=== PATIENT | female | born 1955 | race Hispanic/Latino ===

== ENCOUNTER 2018-03-10 11:34 | Inpatient (IN) | payer BC ==
--- NOTE | 2018-03-10 11:42 | ED PDOC ---
Arrival/HPI - General Chief Complaint: Dizziness/Lightheaded Time Seen by Provider: 03/10/18 11:40 Historian: Patient - History of Present Illness Narrative History of Present Illness (Text): 03/10/18 12:06 62 year old female was brought to the Emergency department by EMS complaining of severe dizziness/lightheadedness, severe nausea with episodes of vomiting, chest tightness and burning associated with difficulty breathing while at rest since 20 minutes prior to arrival. Patient informs losing consciousness prior to contacting EMS and regained consciousness soon after with no improvement to symptoms. Upon EMS arrival, patient appeared diaphoretic with the above mentioned symptoms. Patient was brought to the Emergency department immediately for medical evaluation. Patient denies any medical problems and informs smoking a pack of cigarettes a day. 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) Symptom Onset: Gradual Symptom Course: Worsening Quality: Aching, Tightness, Burning Activities at Onset: Light Context: Home Past Medical History - Provider Review Nursing Documentation Reviewed: Yes - Travel History Have you recently traveled outside [place] w/in the past 3 mons?: No - Past History Past History: No Previous - Infectious Disease Hx of Infectious Diseases: None - Tetanus Immunization Tetanus Immunization: Unknown - Reproductive Menopause: Yes Currently : No - Past Medical History Past Medical History: No Previous Family/Social History - Physician Review Nursing Documentation Reviewed: Yes Family/Social History: No Known Family HX Smoking Status: Current Some Days Smoker Hx Alcohol Use: No Hx Substance Use: No Allergies/Home Meds Allergies/Adverse Reactions: Allergies No Known Allergies Allergy (Verified 03/10/18 11:42) Review of Systems - Physician Review All systems were reviewed & negative as marked: Yes - Review of Systems Constitutional: Fatigue. absent: Fevers Eyes: Normal ENT: Normal Respiratory: SOB Cardiovascular: Chest Pain (chest tightness and burning), Syncope Gastrointestinal: Nausea, Vomiting Genitourinary Female: Normal Musculoskeletal: Normal Skin: Normal Neurological: Dizziness Endocrine: Diaphoresis Hemo/Lymphatic: Normal Psychiatric: Normal Physical Exam Vital Signs Reviewed: Yes Vital Signs Temp Pulse Resp BP Pulse Ox 03/10/18 11:34 96 F L 46 L 18 79/45 L 93 L Temperature: Afebrile Blood Pressure: Hypotensive Pulse: Bradycardic Respiratory Rate: Other (difficulty breathing) Appearance: Positive for: Uncomfortable, Other (mild distress due to pain, uncomfortable, + diaphoretic; alert/awake, resting in bed, coopertive, follows command with ease) Pain Distress: Mild (due to pain) Mental Status: Positive for: Alert and Oriented X 3, other (orientedX3, responds to command) - Systems Exam Head: Present: Atraumatic, Normocephalic Pupils: Present: PERRL, Other (no nystagmus, no photophobia, sclera anicteric) Extroacular Muscles: Present: EOMI Conjunctiva: Present: Normal Ears: Present: Normal Mouth: Present: Moist Mucous Membranes, Normal Teeth Pharnyx: Present: Normal Nose (External): Present: Atraumatic Nose (Internal): Present: Normal Inspection Neck: Present: Normal Range of Motion, Trachea Midline. No: Meningeal Signs, MIDLINE TENDERNESS, Paraspinal Tenderness Respiratory/Chest: Present: Good Air Exchange, Other (coarse bilateral lung sloan, no w/r/r noted, no tachypenia noted, no accessory muscle use noted). No : Respiratory Distress, Accessory Muscle Use, Wheezes, Rales, Rhonchi Cardiovascular: Present: Normal S1, S2, Bradycardic. No: Murmurs Abdomen: Present: Normal Bowel Sounds, Other (well nourished female, no focal tenderness, no masses/rebound/guarding/rigidity; no hammonds's sign, no mcburney' s point tenderness). No: Tenderness, Distention, Peritoneal Signs Back: Present: Normal Inspection. No: CVA Tenderness, Midline Tenderness, Paraspinal Tenderness Upper Extremity: Present: Normal Inspection, Normal ROM, NORMAL PULSES, Neurovascularly Intact. No: Cyanosis, Edema, Capillary Refill < 2s (~1 second) Lower Extremity: Present: Normal Inspection, NORMAL PULSES, Normal ROM, Neurovascularly Intact. No: Edema, Capillary Refill < 2 s Neurological: Present: GCS=15, CN II-XII Intact, Speech Normal Skin: Present: Diaphoretic, Cold, Other (slightly pale, cap refill ~ 1-2 sec). No: Rashes Psychiatric: Present: Alert, Oriented x 3, Normal Insight, Normal Concentration Medical Decision Making ED Course and Treatment: 03/10/18 11:42 Impression: 62 year old female presents to the Emergency department for possible STEMI. I have considered all differential diagnoses regarding patients chief medical complaints/clinical findings which include but are not limited to: STEMI Plan: STEMI -- EKG -- Labs -- Chest X-ray -- Aspirin -- Heparin -- Brilinta -- IV Fluids -- Reassess and disposition Progress Notes: 03/10/18 11:38 CODE HEART ACTIVATED. 03/10/18 11:[address] Aguiar, who is aware and agrees with Emergency department plan management. Requests to administer patient Brilinta, full dose aspirin and heparin. Will evaluate patient. 03/10/18 11:[address] Trevino, as Dr. Aguiar is far away (~40min away), and he is aware and agrees with Emergency department management plan. Will meet patient in catherization lab. pt is made aware of her medical results agrees with cath/admission 03/10/18 11:54 Initially, patient was believed to not have insurance and is why the hospitalist was contacted. However, patient does have insurance. Dr. Casas will be contacted. 03/10/18 12:[address] Casas, who is aware and agrees with admission of patient. requesting his resident and an intensivists to be consulted; Laundry Operator Wash Room has been paged. 03/10/18 12:44 Laundry Operator Wash Room has been paged before and has yet to reply. 03/10/18 13:46 Discussed case with , who is aware and agrees with admission. 03/10/18 13:[address] Casas's resident, who is aware and agrees with Emergency department plan. Will continue to monitor and evaluate patient. Re-evaluation Time: 11:40 Reassessment Condition: Unchanged - Critical Care Critical Care Minutes: 45 minutes Critical Care Time: Excluding Proc Time Narrative Critical Care (Text): 03/11/18 00:15 critical care time: 45min, excluding procedure time, excluding time teaching residents/students/mid-level providers; including initial eval/diagnosis, diagnostic interpretation, re-eval, consultations, final disposition - Lab Interpretations Lab Results: 03/10/18 11:49 03/10/18 11:49 Lab Results 03/10/18 11:49: Sodium 143, Potassium 4.4, Chloride 107, Carbon Dioxide 23, Anion Gap 18, BUN 19, Creatinine 0.7, Est GFR ( Amer) > 60, Est GFR (Non- Af Amer) > 60, Random Glucose 179 H, Calcium 9.8, Total Bilirubin 0.5, AST 65 H , ALT 71 H, Alkaline Phosphatase 94, Lactate Dehydrogenase 620, Total Creatine Kinase 45, Troponin I 0.21 H*, Total Protein 6.6, Albumin 4.0, Globulin 2.5, Albumin/Globulin Ratio 1.6 03/10/18 11:49: PT 10.4, INR 0.91 L 03/10/18 11:49: WBC 12.5 H, RBC 5.27, Hgb 18.4 H*, Hct 51.5 H, MCV 97.7, MCH 34.9, MCHC 35.7, RDW 13.5, Plt Count 302, MPV 10.5, Gran % 60.7, Lymph % (Auto) 33.2, Casey % (Auto) 4.9, Eos % (Auto) 0.8 L, Baso % (Auto) 0.4, Gran # 7.58 H, Lymph # (Auto) 4.1 H, Casey # (Auto) 0.6, Eos # (Auto) 0.1, Baso # (Auto) 0.05 I have reviewed the lab results: Yes Interpretation: Abnormal lab values (elevated trop/elevated LFTs) - RAD Interpretation Narrative RAD Interpretations (Text): 03/10/18 12:16 Chest X-ray reviewed by radiologist, shows: FINDINGS: LUNGS: No active pulmonary disease. PLEURA: No significant pleural effusion identified, no pneumothorax apparent. CARDIOVASCULAR: Normal. OSSEOUS STRUCTURES: No significant abnormalities. VISUALIZED UPPER ABDOMEN: Normal. OTHER FINDINGS: None. IMPRESSION: No active disease. Radiology Orders: 03/10/18 11:43 CHEST PORTABLE [RAD] Stat Resident Caregiver: Radiologist - EKG Interpretation EKG Interpretation (Text): 03/10/18 1200 NSR at 70 bpm, normal axis, no ectopy, ST Elevations noted II/III/F/V3-6, with depressions noted I/L, V1-2; ABNL EKG; ACUTE CT; no old ekg to compare with Interpreted by ED Physician: Yes Type: 12 lead EKG Comparison: No previous EKG avail. - Medication Orders Current Medication Orders: Acetaminophen (Tylenol 325mg Tab) 650 mg PO Q4H PRN PRN Reason: Pain, Mild (1-3) Last Admin: 03/10/18 16:07 Dose: 650 mg Re-Assess: MAR Pain/Vitals Document 03/10/18 17:07 LC (Rec: 03/10/18 17:28 LC [facility] [id number]) Pain Reassessment Is This A Pain ReAssessment? Yes Sleep Is patient sleeping during reassessment? Yes Albuterol/Ipratropium (Duoneb 3 Mg/0.5 Mg (3 Ml) Ud) 3 ml IH Q2H PRN PRN Reason: Shortness of Breath Albuterol/Ipratropium (Duoneb 3 Mg/0.5 Mg (3 Ml) Ud) 3 ml IH [id number] [facility] Last Admin: 03/10/18 19:58 Dose: 3 ml Alprazolam (Xanax) 0.25 mg PO BID PRN PRN Reason: Anxiety Stop: 03/17/18 12:47 Aspirin (Ecotrin) 81 mg PO DAILY [facility] Atorvastatin Calcium (Lipitor) 80 mg PO DIN [facility] Last Admin: 03/10/18 15:59 Dose: 80 mg Docusate Sodium (Colace) 100 mg PO BID [facility] Last Admin: 03/10/18 17:27 Dose: 100 mg Last Bowel Movement Document 03/10/18 17:27 (Rec: 03/10/18 17:27 LC [facility] [place]) Last Bowel Movement Last Bowel Movement 03/09/18 Dopamine HCl/Dextrose (Dopamine 400mg/250ml D5w) 400 mg in 250 mls @ 16.585 mls /hr IV .Q15H5M PRN; Protocol; 5 MCG/KG/MIN PRN Reason: TITRATE PER MD ORDER Last Admin: 03/10/18 21:09 Dose: 5 mcg/kg/min, 16.585 mls/hr eMAR Start Stop Document 03/10/18 21:09 ID (Rec: 03/10/18 21:13 ID [id number]) Intravenous Solution Start Date 03/10/18 Start Time 21:12 End Date 03/10/18 [facility] Pulse and Blood Pressure Document 03/10/18 21:09 ID (Rec: 03/10/18 21:13 ID [id number]) Pulse Pulse Rate (60-90) 49 Blood Pressure Blood Pressure (100/60-150/90) 76/31 Titration Intervention Document 03/10/18 21:09 ID (Rec: 03/10/18 21:13 ID [id number]) Titration Intake Waste Amount 0 Container Volume 250 Titration Dosing Titration Dose 5 IV Rate 16.585 Intake/Decrease Started Morphine Sulfate (Morphine) 2 mg IVP Q2H PRN PRN Reason: Pain, moderate (4-7) Last Admin: 03/10/18 15:59 Dose: 2 mg [facility] Pain Assessment Document 03/10/18 15:59 LC (Rec: 03/10/18 15:[address]) Pain Reassessment Is this a pain reassessment? No IVP Administration Document 03/10/18 15:59 LC (Rec: 03/10/18 15:59 LC [facility] [place] Charges for Administration # of IVP Administrations 1 Re-Assess: MAR Pain Assessment Document 03/10/18 16:59 LC (Rec: 03/10/18 17:27 LC [facility] [place]) Pain Reassessment Is this a pain reassessment? Yes Sleep Is patient sleeping during reassessment? Yes Ondansetron HCl (Zofran Inj) 4 mg IVP Q4H PRN PRN Reason: Nausea/Vomiting Last Admin: 03/10/18 21:22 Dose: 4 mg IVP Administration Document 03/10/18 21:22 ID (Rec: 03/10/18 21:23 ID [id number]) Charges for Administration # of IVP Administrations 1 Pantoprazole Sodium (Protonix Inj) 40 mg IVP DAILY [facility] Last Admin: 03/10/18 15:20 Dose: 40 mg IVP Administration Document 03/10/18 15:20 LC (Rec: 03/10/18 15:20 [facility] Charges for Administration # of IVP Administrations 1 Ticagrelor (Brilinta) 90 mg PO BID [facility] Last Admin: 03/10/18 17:26 Dose: 90 mg Zolpidem Tartrate (Ambien) 5 mg PO HS PRN PRN Reason: Insomnia Discontinued Medications Aspirin (Aspirin) 325 mg PO STAT STA Stop: 03/10/18 11:43 Last Admin: 03/10/18 12:07 Dose: Heparin Sodium (Porcine) (Heparin) 5,000 units IV ONCE ONE PRN Reason: Protocol Stop: 03/10/18 11:47 Last Admin: 03/10/18 11:48 Dose: 5,000 units eMAR Start Stop Document 03/10/18 11:48 [email or web address] (Rec: 03/10/18 11:55 [email or web address] [id number]) Intravenous Solution Start Date 03/10/18 Start Time 11:48 Sodium Chloride (Sodium Chloride 0.9%) 1,000 mls @ 999 mls/hr IV .Q1H1M STA Stop: 03/10/18 12:47 Last Admin: 03/10/18 12:07 Dose: 999 mls/hr eMAR Start Stop Document 03/10/18 12:07 SRE (Rec: 03/10/18 12:08 [id number]) Intravenous Solution Start Date 03/10/18 Start Time 11:50 End Date 03/10/18 End time 12:50 Total Infusion Time 60 Sodium Chloride (Sodium Chloride 0.9%) 1,000 mls @ 100 mls/hr IV .Q10H SURJIT Stop: 03/10/18 19:01 Sodium Chloride (Sodium Chloride 0.9%) 1,000 mls @ 200 mls/hr IV .Q5H SURJIT Stop: 03/10/18 19:01 Last Admin: 03/10/18 17:27 Dose: 200 mls/hr eMAR Start Stop Document 03/10/18 17:27 LC (Rec: 03/10/18 17:[address] [facility] [id number]) Intravenous Solution Start Date 03/10/18 Start Time 17:27 Ticagrelor (Brilinta) 180 mg PO STAT STA Stop: 03/10/18 11:45 Last Admin: 03/10/18 11:44 Dose: 180 mg Vitamin A (Vitamin A & D Oint Ud Foilpak) 1 ea TOP ONCE ONE Stop: 03/10/18 19:58 Last Admin: 03/10/18 20:20 Dose: 1 ea - Scribe Statement The provider has reviewed the documentation as recorded by the Scribe Cayla Macedo. All medical record entries made by the Franibe were at my direction and personally dictated by me. I have reviewed the chart and agree that the record accurately reflects my personal performance of the history, physical exam, medical decision making, and the department course for this patient. I have also personally directed, reviewed, and agree with the discharge instructions and disposition. Disposition/Present on Arrival - Present on Arrival Any Indicators Present on Arrival: No History of DVT/PE: No History of Uncontrolled Diabetes: No Urinary Catheter: No History of Decub. Ulcer: No History Surgical Site Infection Following: None - Disposition Have Diagnosis and Disposition been Completed?: Yes Diagnosis: Acute CT, Bradycardia, Hypotension Disposition: HOSPITALIZED Disposition Time: 11:55 Patient Plan: Admission, Other (union laborer and then to ICU) Condition: GUARDED
[2018-03-10] MEDS ORDERED: Lidocaine 2% Inj (20ml) ONE ×2 (11:46→12:18)
[2018-03-10] MEDS ORDERED: Sodium Chloride 0.9% 1,000 ML IV STA (11:47)
[2018-03-10] MEDS ORDERED: Phenylephrine 10 mg/ml Inj ONE (11:47)
[2018-03-10] MEDS ORDERED: Midazolam 2 MG/2 ML VIAL ONE ×2 (11:49→12:12)
[2018-03-10] MEDS ORDERED: NOREPINEPHRINE BIT/0.9 % NACL 4 MG/250 ML BAG IV ONE (11:49)
[2018-03-10] MEDS ORDERED: Iodixanol 320 MG/ML 100 ML BOTTLE IV ONE (11:50)
[2018-03-10] MEDS ORDERED: Nitroglycerin 50mg in D5W 0 MG/0 ML BOTTLE IV ONE (11:50)
[2018-03-10] MEDS ORDERED: Iodixanol 320 MG/ML 200 ML BOTTLE IV ONE (11:50)
[2018-03-10] MEDS ORDERED: Iohexol 350mgl/ml 50 ML ONE (11:50)
[2018-03-10 11:52] LABS: BASO # 0.05 K/mm3 (0.0-2.0); BASO % 0.4 % (0.0-3.0); EOS # 0.1 (0.0-0.7); EOS % 0.8 % (1.5-5.0); GRAN # 7.58 (1.4-6.5); GRAN % 60.7 % (50.0-68.0); LYMPH # 4.1 (1.2-3.4); LYMPH % 33.2 % (22.0-35.0); MEAN CELL VOLUME 97.7 fl (80.0-105.0); MEAN CORPUSCULAR HEMOGLOBIN 34.9 pg (25.0-35.0); MEAN CORPUSCULAR HGB CONC 35.7 g/dl (31.0-37.0); MEAN PLATELET VOLUME 10.5 fl (7.0-11.0); MONO # 0.6 (0.1-0.6); MONO % 4.9 % (1.0-6.0); RBC 5.27 10^6/uL (3.5-6.1); RED CELL DISTRIBUTION WIDTH 13.5 % (11.5-14.5); WHITE BLOOD COUNT 12.5 10^3/ul (4.5-11.0)
[2018-03-10 11:56] LABS: HEMOGLOBIN 18.4 g/dL (12.0-16.0)
[2018-03-10] MEDS ORDERED: Heparin25000 units/250ml 1/2NS 25,000 UNITS/250 ML BAG IV SCH (12:00)
[2018-03-10 12:02] LABS: ALB/GLOB RATIO 1.6 (1.1-1.8); ALT/SGPT 71 U/L (7-56); AST/SGOT 65 U/L (14-36); BLOOD UREA NITROGEN 19 mg/dL (7-21); CALCIUM 9.8 mg/dL (8.4-10.5); GFR AFRICAN-AMERICAN > 60; GFR NON-AFRICAN AMERICAN > 60
--- NOTE | 2018-03-10 12:04 | RAD ---
HISTORY: chest pain COMPARISON: No prior. FINDINGS: LUNGS: No active pulmonary disease. PLEURA: No significant pleural effusion identified, no pneumothorax apparent. CARDIOVASCULAR: Normal. OSSEOUS STRUCTURES: No significant abnormalities. VISUALIZED UPPER ABDOMEN: Normal. OTHER FINDINGS: None. IMPRESSION: No active disease.
[2018-03-10 12:14] LABS: INR 0.91 (0.93-1.08); PROTHROMBIN TIME 10.4 SECONDS (9.4-12.5)
[2018-03-10 12:25] LABS: TROPONIN I 0.21 ng/mL
--- NOTE | 2018-03-10 12:25 | PCM.RRT ---
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 History was taken by 1 of her 3 sisters, Teetee. Pt felt chest pain at home, fell on the floor, vomited, and could not get herself up. She called 911 and daughter, who called Teetee. EMS arrived, found pt laying on her side, covered with vomitus. In ED, she was found to have STEMI in inferior- lateral leads with reciprocal changes in anterior leads. Heparin bolus and gtt started in the ED. She received a loading dose of brilinta. Trop 0.21. She was sent to the shop laborer and received by Dr. Tarango and the cath team. PMH: esophageal tumor s/p removal long time ago current smoker of 1 plus ppd x 40 plus years COPD with wheezes PSH: Gall bladder removal, [place] [facility] [place] FH: Parents of congestive heart failure SH: Live with 2 daughters Work at overnight babysitter in [facility] Walk independently Drink socially Denies drug All: NKDA Med: None PMD: None - Respiratory Oxygen Delivery Method: Nasal Cannula @L/min (2L) - Constitutional Appears: Toxic - Head Head Exam: ATRAUMATIC, NORMOCEPHALIC - Eyes Eye Exam: EOMI, Normal appearance, PERRL. absent: Scleral icterus - Respiratory Exam Respiratory Exam: Decreased Breath Sounds. absent: Rales, Rhonchi, Wheezes - Cardiovascular Exam Cardiovascular Exam: REGULAR RHYTHM, +S1, +S2. absent: Gallop, Rubs, Murmur - GI/Abdominal Exam GI & Abdominal Exam: Soft, Normal Bowel Sounds. absent: Distended - Neurological Exam Neurological Exam: Oriented x3 - Extremities Exam Extremities Exam: Normal Capillary Refill, Pedal Edema (trace ) Plan - Assessment of Findings&Treatment Plan STEMI in RCA, 1 BEATRICE stent is placed - Code heart protocol follows - Care transitioned to Dr Hefferenen - Family notified - Pt will go to ICU for recovery
[2018-03-10] MEDS ORDERED: Sodium Chloride 0.9% 1,000 ML IV SCH (13:00)
[2018-03-10] MEDS ORDERED: DOPamine 400mg/250ml D5W 400 MG/250 ML BAG IV PRN (13:11)
[2018-03-10] MEDS: Morphine 4 mg/ml ISec IVP PRN ×2 (14:10→15:59)
[2018-03-10] MEDS: Sodium Chloride 0.9% 1,000 ML IV SCH ×2 (15:20→17:27)
--- NOTE | 2018-03-10 15:38 | CP.PCM.CON ---
<Luca Diego - Last Filed: 03/10/18 15:25> History of Present Illness - History of Present Illness History of Present Illness: ICU consult note: 62 F with PMHx of HTN, current smoker of 1.5 ppd x 40 plus years, and COPD presents to the ED chest pain and n/v. As per daughter the patient texted her saying "sick down on the floor". The daughter called her aunt that work near by which found her on the floor. EMS was called and was brought to the ED. Here in the ED EKG done and code heart was called - inferior-lateral leads with reciprocal changes in anterior leads - Heparin ggt started with loading dose of Brilinta and patient was taken to the labor contract analyst. Patient is currently resting in bed comfortably. Denies any complaints at this time. Denies any chest pain, sob , abd pain or n/v. 12 Point ROS performed and neg other than stated above. PMH: HTN, current smoker of 1.5 ppd x 40 plus years, and COPD PSH: Gall bladder removal (01/2018) esophageal tumor s/p removal long time ago , Med: refer to MAR All:NKDA FH: Parents of congestive heart failure SH: current smoker of 1.5 ppd x 40 plus years, denies any drinking or drugs Review of Systems - Review of Systems All systems: reviewed and no additional remarkable complaints except (HPI) Past Patient History - Past Social History Smoking Status: Current Some Days Smoker - PSYCHIATRIC Hx Substance Use: No - SURGICAL HISTORY Hx Surgeries: Yes Meds Allergies/Adverse Reactions: Allergies Allergy/AdvReac Type Severity Reaction Status Date / Time No Known Allergies Allergy Verified 03/10/18 11:42 - Medications Medications: Current Medications Acetaminophen (Tylenol 325mg Tab) 650 mg PO Q4H PRN PRN Reason: Pain, Mild (1-3) Albuterol/Ipratropium (Duoneb 3 Mg/0.5 Mg (3 Ml) Ud) 3 ml IH Q2H PRN PRN Reason: Shortness of Breath Albuterol/Ipratropium (Duoneb 3 Mg/0.5 Mg (3 Ml) Ud) 3 ml IH [id number] SURJIT Alprazolam (Xanax) 0.25 mg PO BID PRN PRN Reason: Anxiety Stop: 03/17/18 12:47 Aspirin (Ecotrin) 81 mg PO DAILY [facility] Atorvastatin Calcium (Lipitor) 80 mg PO DIN [facility] Docusate Sodium (Colace) 100 mg PO BID [facility] Dopamine HCl/Dextrose (Dopamine 400mg/250ml D5w) 400 mg in 250 mls @ 16.585 mls /hr IV .Q15H5M PRN; Protocol; 5 MCG/KG/MIN PRN Reason: TITRATE PER MD ORDER Sodium Chloride (Sodium Chloride 0.9%) 1,000 mls @ 200 mls/hr IV .Q5H [facility] Stop: 03/10/18 19:01 Last Admin: 03/10/18 15:20 Dose: 200 mls/hr Morphine Sulfate (Morphine) 2 mg IVP Q2H PRN PRN Reason: Pain, moderate (4-7) Last Admin: 03/10/18 14:10 Dose: 2 mg Ondansetron HCl (Zofran Inj) 4 mg IVP Q4H PRN PRN Reason: Nausea/Vomiting Last Admin: 03/10/18 14:00 Dose: 4 mg Pantoprazole Sodium (Protonix Inj) 40 mg IVP DAILY [facility] Last Admin: 03/10/18 15:20 Dose: 40 mg Ticagrelor (Brilinta) 90 mg PO BID [facility] Zolpidem Tartrate (Ambien) 5 mg PO HS PRN PRN Reason: Insomnia Physical Exam - Constitutional Appears: No Acute Distress - Head Exam Head Exam: ATRAUMATIC, NORMOCEPHALIC - Eye Exam Eye Exam: EOMI, PERRL - ENT Exam ENT Exam: Mucous Membranes Moist - Respiratory Exam Respiratory Exam: Clear to Auscultation Bilateral, Wheezes. absent: Rales, Rhonchi - Cardiovascular Exam Cardiovascular Exam: Bradycardia, REGULAR RHYTHM, RRR, +S1, +S2 - GI/Abdominal Exam GI & Abdominal Exam: Normal Bowel Sounds, Soft. absent: Distended - Extremities Exam Extremities exam: Negative for: calf tenderness, pedal edema - Neurological Exam Neurological exam: Alert, Oriented x3 - Psychiatric Exam Psychiatric exam: Normal Mood - Skin Skin Exam: Dry, Intact, Warm Results - Vital Signs Recent Vital Signs: Last Vital Signs Temp 97.1 F L 03/10/18 13:31 Pulse 60 03/10/18 14:31 Resp 21 03/10/18 13:46 BP 79/45 L 03/10/18 13:31 Pulse Ox 94 L 03/10/18 13:31 - Labs Result Diagrams: 03/10/18 11:49 03/10/18 11:49 Assessment & Plan - Assessment and Plan (Free Text) Assessment: 62 F with PMHx of HTN, current smoker of 1.5 ppd x 40 plus years, and COPD presents to the ED chest pain and n/v. Found to have a STEMI - code heart called and BEATRICE was placed in the RCA. Neuro: - AAO x 3 - Stable Pulm: - Maintain SPO2 > 90 % - 2 L nasal cannula as needed - [id number] SURJIT and Q2H PRN CV - Maintain MAP > 65 % - Cont Asa, Brilinta, Lipitor - Cont Morphine PRN - F/U cardiology recs - Cont NS @ 200 - F/u Serial trops - F/u echo GI: - GI ppx - Cont to monitor LFTs Renal: - Avoid nephrotoxic medications - Replete electrolytes as needed - Monitor I and O ID: - A febrile and wbc 12.5 - Cont to monitor off abx Heme: - Monitor H/H Case and plan was reviewed and discussed with Dr Winters. <Gokul Winters - Last Filed: 03/10/18 16:22> Meds - Medications Medications: Current Medications Acetaminophen (Tylenol 325mg Tab) 650 mg PO Q4H PRN PRN Reason: Pain, Mild (1-3) Last Admin: 03/10/18 16:07 Dose: 650 mg Albuterol/Ipratropium (Duoneb 3 Mg/0.5 Mg (3 Ml) Ud) 3 ml IH Q2H PRN PRN Reason: Shortness of Breath Albuterol/Ipratropium (Duoneb 3 Mg/0.5 Mg (3 Ml) Ud) 3 ml IH [id number] SURJIT Alprazolam (Xanax) 0.25 mg PO BID PRN PRN Reason: Anxiety Stop: 03/17/18 12:47 Aspirin (Ecotrin) 81 mg PO DAILY [facility] Atorvastatin Calcium (Lipitor) 80 mg PO DIN [facility] Last Admin: 03/10/18 15:59 Dose: 80 mg Docusate Sodium (Colace) 100 mg PO BID [facility] Dopamine HCl/Dextrose (Dopamine 400mg/250ml D5w) 400 mg in 250 mls @ 16.585 mls /hr IV .Q15H5M PRN; Protocol; 5 MCG/KG/MIN PRN Reason: TITRATE PER MD ORDER Sodium Chloride (Sodium Chloride 0.9%) 1,000 mls @ 200 mls/hr IV .Q5H [facility] Stop: 03/10/18 19:01 Last Admin: 03/10/18 15:20 Dose: 200 mls/hr Morphine Sulfate (Morphine) 2 mg IVP Q2H PRN PRN Reason: Pain, moderate (4-7) Last Admin: 03/10/18 15:59 Dose: 2 mg Ondansetron HCl (Zofran Inj) 4 mg IVP Q4H PRN PRN Reason: Nausea/Vomiting Last Admin: 03/10/18 14:00 Dose: 4 mg Pantoprazole Sodium (Protonix Inj) 40 mg IVP DAILY [facility] Last Admin: 03/10/18 15:20 Dose: 40 mg Ticagrelor (Brilinta) 90 mg PO BID [facility] Zolpidem Tartrate (Ambien) 5 mg PO HS PRN PRN Reason: Insomnia Results - Vital Signs Recent Vital Signs: Last Vital Signs Temp 97.1 F L 03/10/18 13:31 Pulse 60 03/10/18 14:31 Resp 21 03/10/18 13:46 BP 79/45 L 03/10/18 13:31 Pulse Ox 94 L 03/10/18 13:31 - Labs Result Diagrams: 03/10/18 11:49 03/10/18 11:49 Assessment & Plan - Assessment and Plan (Free Text) Assessment: Patient seen and examined with resident, agree with note with following additions/exceptions: Patient is 62yo F with PMHx of HTN, current smoker of 1.5 ppd x 40 plus years, and COPD presents to the ED chest pain and n/v, found to have BROOKE in inferior leads, s/p cardiac cath, s/p stent in proximal RCA. Currently afebrile, HD stable, comfortable in NAD. STEMI COPD HTN Recommend: - cont with supp o2, goal sat >90% - panculture, UCx, BCx, Procal - BP Control - ASA, Brillinta, Statin - Hold BB - follow up cardiology - Check TSh, HgbA1C, Lipid panel - ECHO - Duonebs PRN - GI ppx - DVT ppx - Monitor in CCU
--- NOTE | 2018-03-10 18:24 | CARD ---
APPROVED REPORT EXAM: Two-dimensional and M-mode echocardiogram with Doppler and color Doppler. INDICATION IA 2D DIMENSIONS Left Atrium (2D)3.6 (1.6-4.0cm)IVSd1.2 (0.7-1.1cm) LVDd3.7 (3.9-5.9cm)PWd1.2 (0.7-1.1cm) LVDs2.8 (2.5-4.0cm)FS (%) 25.8 % LVEF (%)52.0 (>50%) M-Mode DIMENSIONS Aortic Root2.70 (2.2-3.7cm)Aortic Cusp Exc.1.70 (1.5-2.0cm) Aortic Valve AoV Peak Pdaebgoq041.0cm/Elizabeth Peak GR.6mmHg Mitral Valve E/A ratio0.0 TDI E/Lateral E'0.0E/Medial E'0.0 Pulmonary Valve PV Peak Qbhevkft74.1cm/sPV Peak Grad.1mmHg Tricuspid Valve TR Peak [id number]/sRAP [id number] Peak Gr.9mmHg [id number] LEFT VENTRICLE The left ventricle is normal size. There is mild concentric left ventricular hypertrophy. The systolic function is mildly impaired. There is borderline hypokinesis in the posterior wall. RIGHT VENTRICLE The right ventricle is borderline dilated. Systolic function is moderately reduced. ATRIA The left atrium size is normal. The right atrium size is normal. The interatrial septum is intact with no evidence for an atrial septal defect. AORTIC VALVE The aortic valve is normal in structure. No aortic regurgitation is present. There is no aortic valvular stenosis. MITRAL VALVE The mitral valve is normal in structure. There is no mitral valve regurgitation noted. TRICUSPID VALVE The tricuspid valve is normal in structure. There is no tricuspid valve regurgitation noted. GREAT VESSELS The aortic root is normal in size. The IVC is normal in size and collapses >50% with inspiration. PERICARDIAL EFFUSION There is no pleural effusion. There is no pericardial effusion. <Conclusion> Mildly dilated RV. Normal LV size. Mildly reduced LV systolic function with mild posterior hypokinesis. Mild concentric LVH. Moderately reduced RV systolic function.
--- NOTE | 2018-03-10 18:49 | CARD ---
APPROVED REPORT EKG Measurement Heart [id number] <Conclusion> Marked sinus bradycardia ST elevation, consider inferior injury or acute infarct ACUTE RI Consider right ventricular involvement in acute inferior infarct Abnormal ECG
--- NOTE | 2018-03-10 18:50 | CARD ---
APPROVED REPORT EKG Measurement Heart [id number] <Conclusion> Normal sinus rhythm Biatrial enlargement ST elevation, consider inferolateral injury or acute infarct ACUTE PR Consider right ventricular involvement in acute inferior infarct Abnormal ECG
[2018-03-10] MEDS ORDERED: Vitamins A & D Oint UD Foilpak TOP ONE (19:57)
[2018-03-10] MEDS: Albuterol-Ipratrop 3 mg / 0.5 (3 ml) UD IH SCH (19:58)
[2018-03-10 22:33] LABS: CK MB% 10.7 % (2.5-3.0); TROPONIN I 3.9 ng/mL
--- NOTE | 2018-03-11 | CARDCATH ---
PROCEDURE DATE: 03/10/2018 CARDIAC CATHETERIZATION REPORT HISTORY: This is a 62-year-old woman who presented to emergency room with chest pain and dizziness. She had evidence of acute inferior wall myocardial infarction with severe sinus bradycardia. Emergency catheterization was advised. INDICATION: Acute inferior wall myocardial infarction. FINDINGS: HEMODYNAMICS: The initial aortic pressure is 120/60; however, she intermittently dropped to 70/40. CORONARY ANATOMY: 1. The left main stem was normal. 2. The left anterior descending artery had mild irregularities. 3. The left circumflex artery had mild irregularities as well. 4. The right coronary artery was occluded proximally. The coronary circulation was right dominant. LEFT VENTRICULOGRAPHY: A hand injection was performed in the left ventricle revealing evidence of mild posterior basal hypokinesis with an overall ejection fraction of 45%. There is no aortic valve gradient noted on catheter pullback. Mitral regurgitation was not assessed. CORONARY INTERVENTION: Attempted PCI of the RCA was then performed. The occlusion in the proximal RCA was successfully crossed with the use of a Morrice wire. Following this, initial inflations were performed with a 2.5 mm balloon. She had transient bradycardia and heart block with this, requiring atropine administration. The lesion in the proximal RCA was treated with the placement of a 3.0 x 15 mm Resolute drug-eluting stent. This was inflated to 12 atmospheres for 45 seconds. There was 0% residual stenosis at the site following intervention. DENI grade 3 flow was established following the procedure. It is appeared to be a moderate 40% lesion in the mid vessel as well as a 60% stenosis in the small posterolateral branch, these were left untreated. Access could not be obtained via the right femoral artery. A venous sheath was placed in the right femoral vein, in the event through, a pacemaker support was required. Left femoral artery access had been obtained. An angiography of the left femoral artery at the end of the procedure, revealed a small diffusely diseased vessel with evidence of significant calcification and severe disease with a large eccentric plaque present at the distal common femoral artery. The puncture site was then closed with deployment of a Mynx device. CONCLUSION: 1. Acute inferior wall myocardial infarction secondary to proximal RCA occlusion successfully treated with drug-eluting stent. 2. Mildly reduced LV systolic function. 3. Significant peripheral arterial disease. RECOMMENDATIONS: Given the above findings, aspirin, statin, and Brilinta therapy will be initiated. Beta-royal therapy will be added as heart rate and blood pressure allow. The patient will likely need significant volume infusion to maintain adequate blood pressure as there is likely significant right ventricular component to this infarct. A smoking abstinence would be strongly advised. Shantanu Trevino MD
[2018-03-11] MEDS: Albuterol-Ipratrop 3 mg / 0.5 (3 ml) UD IH SCH ×5 (02:50→20:09)
--- NOTE | 2018-03-11 04:48 | CON ---
DATE: 03/10/2018 REQUESTING PHYSICIAN: Dr. Angel REASON FOR CONSULTATION: Acute inferior myocardial infraction. HISTORY OF PRESENT ILLNESS: This is a 62-year-old woman with history of hypertension and longstanding tobacco abuse who presents to emergency room after being found at home on the floor. She states that she felt weak and lightheaded was having chest pain. EMS was called and she was brought to emergency room. She is found having a large inferolateral wall myocardial infarction. Emergency catheterization was requested. She denies any prior cardiac history. She has been a smoker for many years . She does have a history of hypertension as well but does not take medication. Her past history is notable for prior cholecystectomy. In January of this year, she has also had an esophageal tumor removed sometime ago. The details were unclear. ALLERGIES: NONE. MEDICATIONS: NONE. FAMILY HISTORY: Both parents are from complications of heart failure. 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 REVIEW OF SYSTEMS: 10-point review of systems is limited, but otherwise unremarkable. PHYSICAL EXAMINATION GENERAL: She is an anxious-appearing, middle-aged woman who appears uncomfortable due to chest pain. VITAL SIGNS: Her blood pressure is 90/60 with a pulse of 32, respirations are 28. She is afebrile. HEENT: No JVD. CHEST: Bilateral scattered rhonchi. HEART: PMI displaced laterally with systolic murmur left sternal border. ABDOMEN: Soft, nontender with bowel sounds. EXTREMITIES: No edema. Distal pulses are nonpalpable. SKIN: Warm and dry. PSYCHIATRIC: Moderate anxiety as noted. NEUROLOGIC: Moving all four extremities with no gross deficits noted. LABORATORY DATA: Electrocardiogram reveals a marked sinus bradycardia with an internal lateral myocardial fraction pattern. Admission labs are pending. IMPRESSION: 1. Acute inferolateral myocardial fraction, likely secondary to right coronary artery occlusion given marked sinus bradycardia. This is likely a proximal lesion involving the sinoatrial node. 2. History of tobacco abuse. 3. Probable chronic obstructive pulmonary disease. 4. History of hypertension. RECOMMENDATIONS: The patient will be brought emergently to cardiac catheterization lab and undergo angiography and possible intervention assuming suitable anatomy was found. The risks and benefits have been discussed with her and she is agreeable to proceed. Further plans are made based on a clinical course. Shantanu Trevino MD
[2018-03-11 06:27] LABS: BASO # 0.01 K/mm3 (0.0-2.0); BASO % 0.1 % (0.0-3.0); GRAN # 16.62 (1.4-6.5); GRAN % 85.3 % (50.0-68.0); HEMOGLOBIN 17.1 g/dL (12.0-16.0); LYMPH # 1.4 (1.2-3.4); LYMPH % 7.4 % (22.0-35.0); MEAN CELL VOLUME 100.6 fl (80.0-105.0); MEAN CORPUSCULAR HEMOGLOBIN 34.2 pg (25.0-35.0); MEAN PLATELET VOLUME 10.8 fl (7.0-11.0); MONO # 1.4 (0.1-0.6); MONO % 7.2 % (1.0-6.0); RED CELL DISTRIBUTION WIDTH 13.8 % (11.5-14.5); WHITE BLOOD COUNT 19.5 10^3/ul (4.5-11.0)
[2018-03-11 06:41] LABS: BLOOD UREA NITROGEN 23 mg/dL (7-21); CALCIUM 9.3 mg/dL (8.4-10.5); GFR AFRICAN-AMERICAN > 60; GFR NON-AFRICAN AMERICAN > 60
[2018-03-11] MEDS: Morphine 4 mg/ml ISec IVP PRN (07:26)
[2018-03-11] MEDS ORDERED: Labetalol 5 mg/ml Inj 20ML IV STA (07:56)
[2018-03-11] MEDS ORDERED: Nitroglycerin 50mg in D5W 50 MG/250 ML BOTTLE IV ONE (08:00)
[2018-03-11] MEDS ORDERED: Sodium Chloride 0.9% 1,000 ML IV STA ×5 (08:00→13:05)
[2018-03-11] MEDS ORDERED: Nitroglycerin 50mg in D5W 50 MG/250 ML BOTTLE IV PRN (08:01)
[2018-03-11] MEDS ORDERED: Morphine 4 mg/ml ISec IVP STA (08:30)
[2018-03-11 08:40] LABS: CK MB% 12.6 % (2.5-3.0)
--- NOTE | 2018-03-11 10:15 | CP.CCUPN ---
<Elaine Pro - Last Filed: 03/11/18 10:26> CCU Subjective - Physician Review Subjective (Free Text): 03/11/18 10:13 Patient seen and examined at bedside. Pt hypertensive this AM, and reports chest pain, given Morphine and started on Hydralazine prn. Dr Cardenas at bedside. Denies sob, fever, nausea, vomiting, palpitations, leg swelling. Critical Care Time Spent (in minutes): 60 CCU Objective - Vital Signs / Intake & Output Vital Signs (Last 4 hours): Vital Signs Pulse Resp BP Pulse Ox 03/11/18 10:00 79 97 03/11/18 09:50 110 H 87 L 03/11/18 09:40 60 18 75 L 03/11/18 09:37 50/0 L 03/11/18 09:30 49 L 7 L 99 03/11/18 09:20 51 L 99 03/11/18 09:10 55 L 100 03/11/18 09:00 53 L 68/0 L 99 03/11/18 08:56 60/0 L 03/11/18 08:50 54 L 22 97 03/11/18 08:40 61 85 H 96 03/11/18 08:30 54 L 95 03/11/18 08:20 52 L 96 03/11/18 08:10 54 L 27 H 93 L 03/11/18 08:00 50 L 23 62/0 L 03/11/18 07:50 57 L 03/11/18 07:46 56 L 23 205/121 H 03/11/18 07:40 56 L 27 H 03/11/18 07:38 53 L 19 221/104 H 03/11/18 07:30 58 L 24 03/11/18 07:20 57 L 18 03/11/18 07:10 56 L 17 03/11/18 07:02 62 40 H 199/92 H 03/11/18 07:00 59 L 21 03/11/18 06:50 61 40 H 03/11/18 06:40 58 L 182 H 03/11/18 06:30 58 L 24 03/11/18 06:20 53 L 21 03/11/18 06:15 78 19 Intake and Output (Last 8hrs): Intake & Output 03/10/18 03/11/18 03/11/18 22:59 06:59 14:59 Intake Total 1040 Balance 1040 Intake: IV 800 Left Antecubital 800 Oral 240 - Physical Exam Head: Positive for: Atraumatic, Normocephalic Pupils: Positive for: PERRL, Other (no nystagmus, no photophobia, sclera anicteric) Extroacular Muscles: Positive for: EOMI Conjunctiva: Positive for: Normal Ears: Positive for: Normal Mouth: Positive for: Moist Mucous Membranes, Normal Teeth Pharnyx: Positive for: Normal Nose (External): Positive for: Atraumatic Nose (Internal): Positive for: Normal Inspection Neck: Positive for: Normal Range of Motion, Trachea Midline. Negative for: Meningeal Signs, MIDLINE TENDERNESS, Paraspinal Tenderness Respiratory/Chest: Positive for: Clear to Auscultation, Good Air Exchange. Negative for: Respiratory Distress, Accessory Muscle Use, Wheezes, Rales, Rhonchi Cardiovascular: Positive for: Normal S1, S2, Bradycardic. Negative for: Murmurs Abdomen: Positive for: Normal Bowel Sounds, Other (well nourished female, no focal tenderness, no masses/rebound/guarding/rigidity; no hammonds's sign, no mcburney's point tenderness). Negative for: Tenderness, Distention, Peritoneal Signs Back: Positive for: Normal Inspection. Negative for: CVA Tenderness, Midline Tenderness, Paraspinal Tenderness Upper Extremity: Positive for: Normal Inspection, Normal ROM, NORMAL PULSES, Neurovascularly Intact. Negative for: Cyanosis, Edema, Capillary Refill < 2s (~ 1 second) Lower Extremity: Positive for: Normal Inspection, NORMAL PULSES, Normal ROM, Neurovascularly Intact. Negative for: Edema, Capillary Refill < 2 s Neurological: Positive for: GCS=15, CN II-XII Intact, Speech Normal Skin: Positive for: Warm, Other (slightly pale, cap refill ~ 1-2 sec). Negative for: Rashes Psychiatric: Positive for: Alert, Oriented x 3, Normal Insight, Normal Concentration - Medications Active Medications: Active Medications Generic Name Dose Route Start Last Admin Trade Name Freq PRN Reason Stop Dose Admin Acetaminophen 650 mg 03/10/18 12:46 03/10/18 16:07 Tylenol 325mg Tab PO 650 mg Q4H PRN Administration Pain, Mild (1-3) Albuterol/Ipratropium 3 ml 03/10/18 14:55 Duoneb 3 Mg/0.5 Mg (3 Ml) Ud IH Q2H PRN Shortness of Breath Albuterol/Ipratropium 3 ml 03/10/18 20:00 03/11/18 08:18 Duoneb 3 Mg/0.5 Mg (3 Ml) Ud IH 3 ml [id number] SURJIT Administration Alprazolam 0.25 mg 03/10/18 12:46 Xanax PO 03/17/18 12:47 BID PRN Anxiety Aspirin 81 mg 03/11/18 10:00 Ecotrin PO DAILY SURJIT Atorvastatin Calcium 80 mg 03/10/18 17:00 03/10/18 15:59 Lipitor PO 80 mg DIN SURJIT Administration Docusate Sodium 100 mg 03/10/18 18:00 03/10/18 17:27 Colace PO 100 mg BID SURJIT Administration Hydralazine HCl 10 mg 03/11/18 12:00 Apresoline IVP Q4 SURJIT Dopamine HCl/Dextrose 400 mg in 250 mls @ 16.585 mls/hr 03/10/18 13:11 21:09 Dopamine 400mg/250ml D5w IV 5 mcg/kg/min .Q15H5M PRN 16.585 mls/hr TITRATE PER MD ORDER Administration Protocol 5 MCG/KG/MIN Sodium Chloride 1,000 mls @ 999 mls/hr 03/11/18 10:10 Sodium Chloride 0.9% IV 03/11/18 11:10 .Q1H1M STA Morphine Sulfate 2 mg 03/10/18 13:11 03/11/18 07:26 Morphine IVP 2 mg Q2H PRN Administration Pain, moderate (4-7) Ondansetron HCl 4 mg 03/10/18 13:24 03/10/18 21:22 Zofran Inj IVP 4 mg Q4H PRN Administration Nausea/Vomiting Pantoprazole Sodium 40 mg 03/10/18 13:15 03/10/18 15:20 Protonix Inj IVP 40 mg DAILY SURJIT Administration Ticagrelor 90 mg 03/10/18 18:00 03/10/18 17:26 Brilinta PO 90 mg BID SURJIT Administration Zolpidem Tartrate 5 mg 03/10/18 12:46 Ambien PO HS PRN Insomnia - Patient Studies Lab Studies: Lab Studies 03/11/18 03/11/18 03/10/18 Range/Units 05:00 05:00 21:05 WBC 19.5 H D (4.5-11.0) 10^3/ul RBC 5.00 (3.5-6.1) 10^6/uL Hgb 17.1 H (12.0-16.0) g/dL Hct 50.3 H (36.0-48.0) % MCV 100.6 (80.0-105.0) fl MCH 34.2 (25.0-35.0) pg MCHC 34.0 (31.0-37.0) g/dl RDW 13.8 (11.5-14.5) % Plt Count 299 (120.0-450.0) 10^3/uL MPV 10.8 (7.0-11.0) fl Gran % 85.3 H (50.0-68.0) % Lymph % (Auto) 7.4 L (22.0-35.0) % [place] % (Auto) 7.2 H (1.0-6.0) % Eos % (Auto) 0.0 L (1.5-5.0) % Baso % (Auto) 0.1 (0.0-3.0) % Gran # 16.62 H (1.4-6.5) Lymph # (Auto) 1.4 (1.2-3.4) [place] # (Auto) 1.4 H (0.1-0.6) Eos # (Auto) 0.0 (0.0-0.7) Baso # (Auto) 0.01 (0.0-2.0) K/mm3 Sodium 145 (132-148) mmol/L Potassium 4.4 (3.6-5.0) mmol/L Chloride 107 (98-107) mmol/L Carbon Dioxide 27 (21-33) mmol/L Anion Gap 15 (10-20) BUN 23 H (7-21) mg/dL Creatinine 0.7 (0.7-1.2) mg/dl Est GFR ( Amer) > 60 Est GFR (Non-Af Amer) > 60 Random Glucose 200 H (70-110) mg/dL Calcium 9.3 (8.4-10.5) mg/dL Lactate Dehydrogenase 1463 H 653 (333-699) U/L Total Creatine Kinase 2629 H 746 H (35-230) U/L CK-MB (CK-2) 330.0 H 80.0 H (0.0-3.6) ng/mL CK-MB (CK-2) % 12.6 H 10.7 H (2.5-3.0) % Troponin I 16.20 H* D 3.90 H* D ng/mL Laboratory Results - last 24 hr 03/10/18 03/11/18 03/11/18 21:05 05:00 05:00 WBC 19.5 H D RBC 5.00 Hgb 17.1 H Hct 50.3 H MCV 100.6 MCH 34.2 MCHC 34.0 RDW 13.8 Plt Count 299 MPV 10.8 Gran % 85.3 H Lymph % (Auto) 7.4 L [place] % (Auto) 7.2 H Eos % (Auto) 0.0 L Baso % (Auto) 0.1 Gran # 16.62 H Lymph # (Auto) 1.4 [place] # (Auto) 1.4 H Eos # (Auto) 0.0 Baso # (Auto) 0.01 Sodium 145 Potassium 4.4 Chloride 107 Carbon Dioxide 27 Anion Gap 15 BUN 23 H Creatinine 0.7 Est GFR ( Amer) > 60 Est GFR (Non-Af Amer) > 60 Random Glucose 200 H Calcium 9.3 Lactate Dehydrogenase 653 1463 H Total Creatine Kinase 746 H 2629 H CK-MB (CK-2) 80.0 H 330.0 H CK-MB (CK-2) % 10.7 H 12.6 H Troponin I 3.90 H* D 16.20 H* D EKG/Cardiology Studies: Cardiology / EKG Studies 03/11/18 06:42 EKG [ELECTROCARDIOGRAM] Stat Comment: Reason For Exam: Chest pain 03/11/18 12:00 ELECTROCARDIOGRAM Routine Comment: Reason For Exam: chest pain Review of Systems - Review of Systems All systems: reviewed and no additional remarkable complaints except Review of Systems: as per subjective portion of exam Assessment/Plan - Assessment and Plan (Free Text) Assessment: 62 F with PMH of HTN, COPD, admitted for STEMI, s/p RCA BEATRICE stent placement yesterday. Pt hypotensive, with chest pain, diaphoresis this AM, given morphine , Nitroglycerin SL, given 2L NS boluses. Dr Cardenas at bedside. Pt currently stable, will trend trop and EKG in the afternoon: Neuro: - AAO x 3 - Stable Pulm: - Maintain SPO2 > 90 % - 2 L nasal cannula as needed - [id number] SURJIT and Q2H PRN CV - Maintain MAP > 65 - Cont Asa, Brilinta, Lipitor - Cont Morphine PRN - IVF boluses prn - Dr Cardenas on board. appreciate recs. - Trop and EKG at 12 PM. - Echo 03/10: EF 52%. Mildly dilated RV/reduced RV systolic function. GI: - GI ppx - Cont to monitor LFTs Renal: - Avoid nephrotoxic medications - Replete electrolytes as needed - Monitor I and O ID: - Afebrile, leukocytosis 19.5 today (likely reactive) - Cont to monitor Heme: - Monitor H/H PPX: Protonix, SCDs Case and plan was reviewed and discussed with Dr Winters. Elaine Pro, PGY1 - Date & Time Date: 03/11/18 Time: 10:37 <Gokul Winters - Last Filed: 03/11/18 10:44> CCU Objective - Vital Signs / Intake & Output Vital Signs (Last 4 hours): Vital Signs Pulse Resp BP Pulse Ox 03/11/18 10:00 79 97 03/11/18 09:50 110 H 87 L 03/11/18 09:40 60 18 75 L 03/11/18 09:37 50/0 L 03/11/18 09:30 49 L 7 L 99 03/11/18 09:20 51 L 99 03/11/18 09:10 55 L 100 03/11/18 09:00 53 L 68/0 L 99 03/11/18 08:56 60/0 L 03/11/18 08:50 54 L 22 97 03/11/18 08:40 61 85 H 96 03/11/18 08:30 54 L 95 03/11/18 08:20 52 L 96 03/11/18 08:10 54 L 27 H 93 L 03/11/18 08:00 50 L 23 62/0 L 03/11/18 07:50 57 L 03/11/18 07:46 56 L 23 205/121 H 03/11/18 07:40 56 L 27 H 03/11/18 07:38 53 L 19 221/104 H 03/11/18 07:30 58 L 24 03/11/18 07:20 57 L 18 03/11/18 07:10 56 L 17 03/11/18 07:02 62 40 H 199/92 H 03/11/18 07:00 59 L 21 03/11/18 06:50 61 40 H Intake and Output (Last 8hrs): Intake & Output 03/10/18 03/11/18 03/11/18 22:59 06:59 14:59 Intake Total 1040 Balance 1040 Intake: IV 800 Left Antecubital 800 Oral 240 - Medications Active Medications: Active Medications Generic Name Dose Route Start Last Admin Trade Name Freq PRN Reason Stop Dose Admin Acetaminophen 650 mg 03/10/18 12:46 03/10/18 16:07 Tylenol 325mg Tab PO 650 mg Q4H PRN Administration Pain, Mild (1-3) Albuterol/Ipratropium 3 ml 03/10/18 14:55 Duoneb 3 Mg/0.5 Mg (3 Ml) Ud IH Q2H PRN Shortness of Breath Albuterol/Ipratropium 3 ml 03/10/18 20:00 03/11/18 08:18 Duoneb 3 Mg/0.5 Mg (3 Ml) Ud IH 3 ml [id number] SURJIT Administration Alprazolam 0.25 mg 03/10/18 12:46 Xanax PO 03/17/18 12:47 BID PRN Anxiety Aspirin 81 mg 03/11/18 10:00 03/11/18 10:30 Ecotrin PO 81 mg DAILY SURJIT Administration Atorvastatin Calcium 80 mg 03/10/18 17:00 03/10/18 15:59 Lipitor PO 80 mg DIN SURJIT Administration Docusate Sodium 100 mg 03/10/18 18:00 03/11/18 10:30 Colace PO 100 mg BID SURJIT Administration Hydralazine HCl 10 mg 03/11/18 12:00 Apresoline IVP Q4 SURJIT Dopamine HCl/Dextrose 400 mg in 250 mls @ 16.585 mls/hr 03/10/18 13:11 21:09 Dopamine 400mg/250ml D5w IV 5 mcg/kg/min .Q15H5M PRN 16.585 mls/hr TITRATE PER MD ORDER Administration Protocol 5 MCG/KG/MIN Sodium Chloride 1,000 mls @ 999 mls/hr 03/11/18 10:10 03/11/18 09:30 Sodium Chloride 0.9% IV 03/11/18 11:10 999 mls/hr .Q1H1M STA Administration Sodium Chloride 1,000 mls @ 999 mls/hr 03/11/18 10:29 03/11/18 10:32 Sodium Chloride 0.9% IV 03/11/18 11:29 999 mls/hr .Q1H1M STA Administration Morphine Sulfate 2 mg 03/10/18 13:11 03/11/18 07:26 Morphine IVP 2 mg Q2H PRN Administration Pain, moderate (4-7) Ondansetron HCl 4 mg 03/10/18 13:24 03/10/18 21:22 Zofran Inj IVP 4 mg Q4H PRN Administration Nausea/Vomiting Pantoprazole Sodium 40 mg 03/10/18 13:15 03/11/18 10:30 Protonix Inj IVP 40 mg DAILY SURJIT Administration Ticagrelor 90 mg 03/10/18 18:00 03/11/18 10:31 Brilinta PO 90 mg BID SURJIT Administration Zolpidem Tartrate 5 mg 03/10/18 12:46 Ambien PO HS PRN Insomnia - Patient Studies Lab Studies: Lab Studies 03/11/18 03/11/18 03/10/18 Range/Units 05:00 05:00 21:05 WBC 19.5 H D (4.5-11.0) 10^3/ul RBC 5.00 (3.5-6.1) 10^6/uL Hgb 17.1 H (12.0-16.0) g/dL Hct 50.3 H (36.0-48.0) % MCV 100.6 (80.0-105.0) fl MCH 34.2 (25.0-35.0) pg MCHC 34.0 (31.0-37.0) g/dl RDW 13.8 (11.5-14.5) % Plt Count 299 (120.0-450.0) 10^3/uL MPV 10.8 (7.0-11.0) fl Gran % 85.3 H (50.0-68.0) % Lymph % (Auto) 7.4 L (22.0-35.0) % [place] % (Auto) 7.2 H (1.0-6.0) % Eos % (Auto) 0.0 L (1.5-5.0) % Baso % (Auto) 0.1 (0.0-3.0) % Gran # 16.62 H (1.4-6.5) Lymph # (Auto) 1.4 (1.2-3.4) [place] # (Auto) 1.4 H (0.1-0.6) Eos # (Auto) 0.0 (0.0-0.7) Baso # (Auto) 0.01 (0.0-2.0) K/mm3 Sodium 145 (132-148) mmol/L Potassium 4.4 (3.6-5.0) mmol/L Chloride 107 (98-107) mmol/L Carbon Dioxide 27 (21-33) mmol/L Anion Gap 15 (10-20) BUN 23 H (7-21) mg/dL Creatinine 0.7 (0.7-1.2) mg/dl Est GFR ( Amer) > 60 Est GFR (Non-Af Amer) > 60 Random Glucose 200 H (70-110) mg/dL Calcium 9.3 (8.4-10.5) mg/dL Lactate Dehydrogenase 1463 H 653 (333-699) U/L Total Creatine Kinase 2629 H 746 H (35-230) U/L CK-MB (CK-2) 330.0 H 80.0 H (0.0-3.6) ng/mL CK-MB (CK-2) % 12.6 H 10.7 H (2.5-3.0) % Troponin I 16.20 H* D 3.90 H* D ng/mL Laboratory Results - last 24 hr 03/10/18 03/11/18 03/11/18 21:05 05:00 05:00 WBC 19.5 H D RBC 5.00 Hgb 17.1 H Hct 50.3 H MCV 100.6 MCH 34.2 MCHC 34.0 RDW 13.8 Plt Count 299 MPV 10.8 Gran % 85.3 H Lymph % (Auto) 7.4 L [place] % (Auto) 7.2 H Eos % (Auto) 0.0 L Baso % (Auto) 0.1 Gran # 16.62 H Lymph # (Auto) 1.4 [place] # (Auto) 1.4 H Eos # (Auto) 0.0 Baso # (Auto) 0.01 Sodium 145 Potassium 4.4 Chloride 107 Carbon Dioxide 27 Anion Gap 15 BUN 23 H Creatinine 0.7 Est GFR ( Amer) > 60 Est GFR (Non-Af Amer) > 60 Random Glucose 200 H Calcium 9.3 Lactate Dehydrogenase 653 1463 H Total Creatine Kinase 746 H 2629 H CK-MB (CK-2) 80.0 H 330.0 H CK-MB (CK-2) % 10.7 H 12.6 H Troponin I 3.90 H* D 16.20 H* D EKG/Cardiology Studies: Cardiology / EKG Studies 03/11/18 06:42 EKG [ELECTROCARDIOGRAM] Stat Comment: Reason For Exam: Chest pain 03/11/18 12:00 ELECTROCARDIOGRAM Routine Comment: Reason For Exam: chest pain Assessment/Plan - Assessment and Plan (Free Text) Assessment: Patient seen and examined on rounds with resident, agree with note with following additions/exceptions: Patient is 62yo female, with PMhx of heavy smoker, admitted with acute STEMI, s/ p PCI, RCA prox stent. Currently patient is afebrile, HD stable, awake, alert in NAD. Reports chest pain has resolved, as well as SOB. Cardiology Dr Cardenas at bedside. EKG done this morning, shows improvement in BROOKE in inferior leads, repeat cardiac enzymes noted. Repeat EKG and CE at 11am, cardiology closely following. STEMI Inferior wall [place] Hx of Smoking Hypotension, resolved Recommend: - supp o2 as needed, goal sat>90% - duonebs PRN - panculture - ASA, Brillinta, Statin - Hold BB - follow up cardiology - NTG PRN - IVF hydration - repeat CE, and EKG at 11am - monitor electrolytes - monitor HH - FS control - GI ppx - DVT ppx - Monitor in CCU Critical care time 35 minutes
--- NOTE | 2018-03-11 13:10 | CARD ---
APPROVED REPORT EKG Measurement Heart [id number] <Conclusion> Sinus bradycardia with 1st degree AV block Low voltage QRS Inferior infarct, possibly acute Cannot rule out Anterior infarct, age undetermined ACUTE [place] Consider right ventricular involvement in acute inferior infarct Abnormal ECG
--- NOTE | 2018-03-11 13:39 | PN ---
DATE: 03/11/2018 SUBJECTIVE: The patient is seen lying in bed in the CCU. She has had intermittent chest discomfort overnight and through the day. She has had recurrent nausea with some vomiting as well. Her blood pressure has been erratic with recordings of 200 systolic but with frequent extremely low systolic pressure of 50-60. When seen, she continues to have a dull chest pain. CURRENT MEDICATIONS: Include Brilinta 90 mg b.i.d., DuoNeb inhaler, Ecotrin, Lipitor 80 mg daily, morphine p.r.n., Protonix 40 mg daily, Xanax p.r.n., and Zofran p.r.n. PHYSICAL EXAMINATION: GENERAL: She is an anxious-appearing middle-aged woman. VITAL SIGNS: Her blood pressure was 90/50 with a pulse of 60, respirations are 14. She is currently afebrile. HEENT: No JVD. CHEST: Bilateral scattered rhonchi. HEART: PMI displaced laterally with soft tones noted. ABDOMEN: Soft, nontender, normoactive bowel sounds. EXTREMITIES: No edema. Somewhat cool. DIAGNOSTIC DATA: Electrocardiogram reveals sinus bradycardia with persistent but improved ST elevations in inferior leads, reciprocal changes have resolved. White count is 19.5, hemoglobin and hematocrit 17.1 and 50.3 with a platelet count of 299,000. Potassium 4.4, BUN and creatinine are 23 and 0.7, glucose is 200. Initial troponin was 0.21, repeat 3.9 and followup is 16.2. Total CK is 2629. IMPRESSION: 1. Recent inferior wall myocardial fraction secondary to proximal right coronary artery occlusion, successfully treated with percutaneous coronary intervention of right coronary artery with drug-eluting stent. 2. Longstanding history of tobacco abuse. 3. Labile hemodynamics. Echocardiogram was reviewed and reveals a relatively normal left ventricular systolic function, however, the right ventricle appeared dilated and hypokinetic. It is likely that her transient hypotension is due to reduced filling pressures due to her right ventricular dysfunction. This will be exacerbated by any use of nitrates, which she was given earlier or any other preload reducing agents. RECOMMENDATIONS: Aggressive fluid infusion is advised. Maintenance of systolic blood pressure greater than 90 is recommended. Aspirin and Brilinta will continue at this time. Obviously, beta-blockers and afterload reducing agents will be withheld giving her labile blood pressure. At the present time, she does not appear likely to have acute stent thrombosis as well, would expect more dramatic EKG changes and a much larger and troponin rise. In addition, arterial access for repeat catheterization may prove problematic as a functional right femoral artery could not be identified yesterday and her left femoral artery is extremely small and diffusely diseased. Radial access would be necessary for any further interventions. We will continue to follow and make further recommendations as appropriate. Shantanu Trevino MD MTDD
[2018-03-11] MEDS ORDERED: Sodium Chloride 0.9% 1,000 ML IV SCH (14:00)
[2018-03-11] MEDS: Sodium Chloride 0.9% 1,000 ML IV SCH (16:00)
[2018-03-12] MEDS: Sodium Chloride 0.9% 1,000 ML IV SCH (00:03)
[2018-03-12 05:57] LABS: BASO # 0.02 K/mm3 (0.0-2.0); BASO % 0.1 % (0.0-3.0); GRAN # 19.15 (1.4-6.5); HEMOGLOBIN 16.3 g/dL (12.0-16.0); LYMPH # 1.5 (1.2-3.4); LYMPH % 6.5 % (22.0-35.0); MEAN CELL VOLUME 99.4 fl (80.0-105.0); MEAN CORPUSCULAR HGB CONC 34.2 g/dl (31.0-37.0); MEAN PLATELET VOLUME 10.9 fl (7.0-11.0); MONO # 2.2 (0.1-0.6); MONO % 9.4 % (1.0-6.0); RBC 4.79 10^6/uL (3.5-6.1); WHITE BLOOD COUNT 22.8 10^3/ul (4.5-11.0)
[2018-03-12 07:05] LABS: ALB/GLOB RATIO 1.2 (1.1-1.8); ALBUMIN 2.9 g/dL (3.0-4.8); ALT/SGPT 188 U/L (7-56); AST/SGOT 510 U/L (14-36); BLOOD UREA NITROGEN 27 mg/dL (7-21); CALCIUM 8.1 mg/dL (8.4-10.5); GFR AFRICAN-AMERICAN > 60; GFR NON-AFRICAN AMERICAN > 60
[2018-03-12] MEDS: Albuterol-Ipratrop 3 mg / 0.5 (3 ml) UD IH SCH ×3 (07:39→19:54)
[2018-03-12] MEDS ORDERED: Lactated Ringer's 1,000 ML IV SCH (09:30)
--- NOTE | 2018-03-12 09:56 | RAD ---
HISTORY: r/o Pneumonia COMPARISON: 03/10/2018 FINDINGS: LUNGS: No active pulmonary disease. No focal consolidation PLEURA: No significant pleural effusion identified, no pneumothorax apparent. CARDIOVASCULAR: Normal. OSSEOUS STRUCTURES: No significant abnormalities. VISUALIZED UPPER ABDOMEN: Normal. OTHER FINDINGS: None. IMPRESSION: No active disease.
--- NOTE | 2018-03-12 09:57 | CP.PCM.PN ---
Subjective - Date & Time of Evaluation Date of Evaluation: 03/12/18 Time of Evaluation: 07:10 - Subjective Subjective: Patient seen and examined, reports to be feeling significantly better than yesterday, improved breathing. Denies CP, resting SOB. Objective - Vital Signs/Intake and Output Vital Signs (last 24 hours): Temp Pulse Resp BP Pulse Ox 99 F 95 H 19 143/64 90 L 03/11/18 16:00 03/12/18 08:34 03/12/18 05:20 03/12/18 08:34 03/12/18 05:20 Intake and Output: 03/12/18 03/12/18 06:59 18:59 Intake Total 250 2000 Output Total 900 250 Balance -650 1750 - Medications Medications: Current Medications Acetaminophen (Tylenol 325mg Tab) 650 mg PO Q4H PRN PRN Reason: Pain, Mild (1-3) Last Admin: 03/10/18 16:07 Dose: 650 mg Albuterol/Ipratropium (Duoneb 3 Mg/0.5 Mg (3 Ml) Ud) 3 ml IH Q2H PRN PRN Reason: Shortness of Breath Albuterol/Ipratropium (Duoneb 3 Mg/0.5 Mg (3 Ml) Ud) 3 ml IH [id number] [facility] Last Admin: 03/12/18 07:39 Dose: 3 ml Alprazolam (Xanax) 0.25 mg PO TID [facility] Stop: 03/19/18 10:01 Last Admin: 03/12/18 09:24 Dose: 0.25 mg Aspirin (Ecotrin) 81 mg PO DAILY [facility] Last Admin: 03/12/18 09:24 Dose: 81 mg Atorvastatin Calcium (Lipitor) 80 mg PO DIN [facility] Last Admin: 03/11/18 18:27 Dose: 80 mg Docusate Sodium (Colace) 100 mg PO BID [facility] Last Admin: 03/12/18 09:26 Dose: 100 mg Heparin Sodium (Porcine) (Heparin) 5,000 units SC Q8 [facility] PRN Reason: Protocol Last Admin: 03/12/18 06:00 Dose: 5,000 units Hydralazine HCl (Apresoline) 10 mg IVP Q4 [facility] Last Admin: 03/12/18 08:34 Dose: Not Given Morphine Sulfate (Morphine) 2 mg IVP Q2H PRN PRN Reason: Pain, moderate (4-7) Last Admin: 03/11/18 07:26 Dose: 2 mg Ondansetron HCl (Zofran Inj) 4 mg IVP Q4H PRN PRN Reason: Nausea/Vomiting Last Admin: 03/10/18 21:22 Dose: 4 mg Pantoprazole Sodium (Protonix Inj) 40 mg IVP DAILY [facility] Last Admin: 03/12/18 09:25 Dose: 40 mg Sodium Chloride ([place] Nasal [place]) 1 ml NS Q6H PRN PRN Reason: Nasal congestion Ticagrelor (Brilinta) 90 mg PO BID [facility] Last Admin: 03/12/18 09:24 Dose: 90 mg Zolpidem Tartrate (Ambien) 5 mg PO HS PRN PRN Reason: Insomnia Last Admin: 03/11/18 22:04 Dose: 5 mg - Labs Labs: 03/12/18 05:30 03/12/18 05:30 PT 10.4 SECONDS (9.4-12.5) 03/10/18 11:49 INR 0.91 (0.93-1.08) L 03/10/18 11:49 - Constitutional Appears: Non-toxic, No Acute Distress - Head Exam Head Exam: NORMAL INSPECTION - Eye Exam Eye Exam: Normal appearance - ENT Exam ENT Exam: Mucous Membranes Moist - Respiratory Exam Respiratory Exam: Clear to Ausculation Bilateral, NORMAL BREATHING PATTERN - Cardiovascular Exam Cardiovascular Exam: REGULAR RHYTHM, +S1, +S2 - GI/Abdominal Exam GI & Abdominal Exam: Soft, Normal Bowel Sounds - Neurological Exam Neurological Exam: Alert, Awake, Oriented x3 - Psychiatric Exam Psychiatric exam: Normal Affect - Skin Skin Exam: Normal Color, Warm Assessment and Plan - Assessment and Plan (Free Text) Assessment: Patient is 62yo female, with PMhx of heavy smoker, admitted with acute STEMI, s/ p PCI, RCA prox stent. Yesterday patient hypotensive episode, which responded to aggressive IVF hydration, received 5L NS bolus, with adequate BP response. Currently patient is afebrile, HD stable, awake, alert in NAD. Reports chest pain has resolved, as well as SOB. EKG done this morning, shows improvement in BROOKE in inferior leads, repeat cardiac enzymes noted, downtrending. Increasing WBC noted, infectious workup in progress. STEMI Inferior wall [place] Hx of Smoking Hypotension, resolved Recommend: - supp o2 as needed, goal sat>90% - duonebs PRN - panculture, UCx, BCx, Proca, obtain CXR - ASA, Brillinta, Statin - Hold BB - follow up cardiology - DC IVF - monitor electrolytes - monitor HH - FS control - GI ppx - DVT ppx - Monitor in CCU
[2018-03-12] MEDS: Albuterol-Ipratrop 3 mg / 0.5 (3 ml) UD IH PRN ×3 (11:06→22:54)
--- NOTE | 2018-03-12 11:55 | PN ---
DATE: 03/12/2018 SUBJECTIVE: The patient is seen lying in bed in the ICU. She feels somewhat better. Her blood pressure has remained fairly stable through the night with aggressive IV fluids. She has occasional intermittent chest burning, but no recurrent pain. She has had no further nausea or vomiting either. CURRENT MEDICATIONS: Include Brilinta 90 mg b.i.d., aspirin once daily, DuoNeb inhaler, subcutaneous heparin, Lipitor 80 mg daily, Protonix 40 mg daily and Xanax p.r.n. PHYSICAL EXAMINATION GENERAL: She is an anxious-appearing middle-aged woman. VITAL SIGNS: Her blood pressure is 112/66 with a pulse of 90 and sinus, respirations are 16. She is afebrile. Occasional PVCs are noted. HEENT: No JVD. CHEST: Bilateral scattered rhonchi. HEART: PMI displaced laterally with no pathological gallops heard. ABDOMEN: Soft and nontender with normoactive bowel sounds. EXTREMITIES: No edema. DIAGNOSTIC DATA: White count 22.8, hemoglobin and hematocrit 16.3 and 47.6 with platelet count of 238,000. CBC is pending. Morning EKG is pending as well. IMPRESSION: 1. Status post inferior wall myocardial fraction, treated with percutaneous coronary intervention of proximal right coronary artery. 2. Post-infarct hypotension secondary to right ventricular involvement, clinically improved with aggressive hydration. 3. History of tobacco abuse. RECOMMENDATIONS: IV fluids can be tapered back as tolerated. Eventual addition of beta royal therapy will be planned. Aspirin and Brilinta therapy should be continued and interrupted statin therapy should be continued as well. Continue smoking abstinence is advised. Increase anxiolytic therapy would be reasonable. We will continue to follow and make further recommendations as appropriate. Shantanu Trevino MD
[2018-03-12] MEDS ORDERED: MethylPREDNISolone 40 mg Vial ONE (13:02)
[2018-03-12] MEDS: MethylPREDNISolone 40 mg Vial IVP SCH ×2 (13:49→21:30)
[2018-03-12 15:02] LABS: URINE APPEARANCE CLEAR (CLEAR); URINE BILIRUBIN NEGATIVE (NEGATIVE); URINE BLOOD NEGATIVE (NEGATIVE); URINE COLOR YELLOW (YELLOW); URINE GLUCOSE (UA) 250 mg/dL (NEGATIVE); URINE LEUKOCYTE ESTERASE NEGATIVE Leu/uL (NEGATIVE); URINE PROTEIN TRACE mg/dL (<30 mg/dL); URINE UROBILINOGEN 0.2 E.U./dL (<1 E.U./dL)
[2018-03-12 15:11] LABS: URINE BACTERIA SMALL (NEG); URINE RBC NEGATIVE /hpf (0-2); URINE WBC 0 - 2 /hpf (0-6)
--- NOTE | 2018-03-12 15:11 | CARD ---
APPROVED REPORT EKG Measurement Heart [id number] <Conclusion> Atrial fibrillation Low voltage QRS Inferior infarct, possibly acute ACUTE SD Consider right ventricular involvement in acute inferior infarct Abnormal ECG
[2018-03-13] MEDS: Albuterol-Ipratrop 3 mg / 0.5 (3 ml) UD IH SCH ×5 (01:54→19:30)
[2018-03-13] MEDS: Albuterol-Ipratrop 3 mg / 0.5 (3 ml) UD IH PRN (03:10)
[2018-03-13 07:01] LABS: GRAN # 14.68 (1.4-6.5); GRAN % 86.8 % (50.0-68.0); HEMOGLOBIN 14.2 g/dL (12.0-16.0); LYMPH # 0.9 (1.2-3.4); LYMPH % 5.4 % (22.0-35.0); MEAN CELL VOLUME 96.3 fl (80.0-105.0); MEAN CORPUSCULAR HEMOGLOBIN 32.9 pg (25.0-35.0); MEAN CORPUSCULAR HGB CONC 34.2 g/dl (31.0-37.0); MEAN PLATELET VOLUME 10.9 fl (7.0-11.0); MONO # 1.3 (0.1-0.6); MONO % 7.8 % (1.0-6.0); RBC 4.31 10^6/uL (3.5-6.1); WHITE BLOOD COUNT 16.9 10^3/ul (4.5-11.0)
[2018-03-13 07:27] LABS: ALB/GLOB RATIO 1.2 (1.1-1.8); ALT/SGPT 134 U/L (7-56); AST/SGOT 201 U/L (14-36); BLOOD UREA NITROGEN 20 mg/dL (7-21); CALCIUM 8.7 mg/dL (8.4-10.5); GFR AFRICAN-AMERICAN > 60; GFR NON-AFRICAN AMERICAN > 60
[2018-03-13] MEDS ORDERED: Potassium Chloride 20 mEq ER Tab PO STA ×2 (08:07→08:09)
--- NOTE | 2018-03-13 08:43 | CP.PCM.PN ---
Subjective - Date & Time of Evaluation Date of Evaluation: 03/13/18 Time of Evaluation: 07:00 - Subjective Subjective: Stable in ICU. Still dyspnea at times and hypoxia > 30% VM. Family is arranging transfer to [facility]. [facility] for today. V/S noted. RSR, occ. Mobitz 1 noted. PE: Lungs: rhnchi and soft wheezes Cor.: S1S2 Abd.: soft Ext.: no edema Neuro.: alert I/O= 2350/3075 Labs noted: WBC 16,900, K+= 3.0, trop = 25.6 CXR 03/12 noted: NAD ECG 03/12 noted: RSR, Mobitz 1, Ev IMI, STTW changes Objective - Vital Signs/Intake and Output Vital Signs (last 24 hours): Temp Pulse Resp BP Pulse Ox 98.1 F 96 H 24 115/70 91 L 03/13/18 05:00 03/13/18 06:00 03/13/18 05:00 03/13/18 06:42 03/13/18 05:00 Intake and Output: 03/13/18 03/13/18 06:59 18:59 Intake Total 60 Output Total 1 Balance 59 - Medications Medications: Current Medications Acetaminophen (Tylenol 325mg Tab) 650 mg PO Q4H PRN PRN Reason: Pain, Mild (1-3) Last Admin: 03/10/18 16:07 Dose: 650 mg Albuterol/Ipratropium (Duoneb 3 Mg/0.5 Mg (3 Ml) Ud) 3 ml IH Q2H PRN PRN Reason: Shortness of Breath Last Admin: 03/13/18 03:10 Dose: 3 ml Albuterol/Ipratropium (Duoneb 3 Mg/0.5 Mg (3 Ml) Ud) 3 ml IH [id number] [facility] Last Admin: 03/13/18 07:36 Dose: 3 ml Alprazolam (Xanax) 0.25 mg PO TID [facility] Stop: 03/19/18 10:01 Last Admin: 03/12/18 21:28 Dose: 0.25 mg Aspirin (Ecotrin) 81 mg PO DAILY [facility] Last Admin: 03/12/18 09:24 Dose: 81 mg Atorvastatin Calcium (Lipitor) 80 mg PO DIN [facility] Last Admin: 03/12/18 17:01 Dose: 80 mg Docusate Sodium (Colace) 100 mg PO BID [facility] Last Admin: 03/12/18 17:02 Dose: 100 mg Heparin Sodium (Porcine) (Heparin) 5,000 units SC Q8 [facility] PRN Reason: Protocol Last Admin: 03/13/18 06:42 Dose: 5,000 units Methylprednisolone (Solu-Medrol) 40 mg IVP Q12 [facility] Last Admin: 03/12/18 21:30 Dose: 40 mg Morphine Sulfate (Morphine) 2 mg IVP Q2H PRN PRN Reason: Pain, moderate (4-7) Last Admin: 03/11/18 07:26 Dose: 2 mg Ondansetron HCl (Zofran Inj) 4 mg IVP Q4H PRN PRN Reason: Nausea/Vomiting Last Admin: 03/10/18 21:22 Dose: 4 mg Pantoprazole Sodium (Protonix Inj) 40 mg IVP DAILY [facility] Last Admin: 03/12/18 09:25 Dose: 40 mg Sodium Chloride ([place] Nasal [place]) 1 ml NS Q6H PRN PRN Reason: Nasal congestion Last Admin: 03/12/18 14:16 Dose: 2 sprays Ticagrelor (Brilinta) 90 mg PO BID [facility] Last Admin: 03/12/18 17:01 Dose: 90 mg Zolpidem Tartrate (Ambien) 5 mg PO HS PRN PRN Reason: Insomnia Last Admin: 03/12/18 21:28 Dose: 5 mg - Labs Labs: 03/13/18 05:30 03/13/18 05:30 PT 10.4 SECONDS (9.4-12.5) 03/10/18 11:49 INR 0.91 (0.93-1.08) L 03/10/18 11:49 Assessment and Plan - Assessment and Plan (Free Text) Assessment: Acute IMI with occ large RCA and PCI 03/10/18 RV infarction Severe COPD/H/O smoking PVD HBP H/O GB surgery Plan: Replace K+ respiratory Tx. Pulmonary Consultation Patient/Family are arrranging transfer to [facility] today. OOB to chair as car.
[2018-03-13] MEDS: MethylPREDNISolone 40 mg Vial IVP SCH ×3 (09:07→22:14)
--- NOTE | 2018-03-13 10:26 | CP.PCM.PN ---
<Shoaib Godwin - Last Filed: 03/13/18 10:23> Subjective - Date & Time of Evaluation Date of Evaluation: 03/13/18 Time of Evaluation: 10:23 - Subjective Subjective: ICU Progress Note Pt seen and examined at bedside. No acute overnight events. Pt states that breathing is improved with treatments. Pt in process with contacting [facility] for transfer today. Pt denied CP, SOB, n/v/d, abdominal pain, fever, chills, MARTINEZ , or dizziness. Objective - Vital Signs/Intake and Output Vital Signs (last 24 hours): Temp Pulse Resp BP Pulse Ox 98.1 F 96 H 24 115/70 91 L 03/13/18 05:00 03/13/18 06:00 03/13/18 05:00 03/13/18 06:42 03/13/18 05:00 Intake and Output: 03/13/18 03/13/18 06:59 18:59 Intake Total 60 Output Total 1 Balance 59 - Medications Medications: Current Medications Acetaminophen (Tylenol 325mg Tab) 650 mg PO Q4H PRN PRN Reason: Pain, Mild (1-3) Last Admin: 03/10/18 16:07 Dose: 650 mg Albuterol/Ipratropium (Duoneb 3 Mg/0.5 Mg (3 Ml) Ud) 3 ml IH Q2H PRN PRN Reason: Shortness of Breath Last Admin: 03/13/18 03:10 Dose: 3 ml Albuterol/Ipratropium (Duoneb 3 Mg/0.5 Mg (3 Ml) Ud) 3 ml IH [id number] [facility] Last Admin: 03/13/18 07:36 Dose: 3 ml Alprazolam (Xanax) 0.25 mg PO TID [facility] Stop: 03/19/18 10:01 Last Admin: 03/13/18 09:09 Dose: 0.25 mg Aspirin (Ecotrin) 81 mg PO DAILY [facility] Last Admin: 03/13/18 09:09 Dose: 81 mg Atorvastatin Calcium (Lipitor) 40 mg PO HS [facility] Docusate Sodium (Colace) 100 mg PO BID [facility] Last Admin: 03/13/18 09:05 Dose: 100 mg Heparin Sodium (Porcine) (Heparin) 5,000 units SC Q8 [facility] PRN Reason: Protocol Last Admin: 03/13/18 06:42 Dose: 5,000 units Methylprednisolone (Solu-Medrol) 20 mg IVP Q12 [facility] Morphine Sulfate (Morphine) 2 mg IVP Q2H PRN PRN Reason: Pain, moderate (4-7) Last Admin: 03/11/18 07:26 Dose: 2 mg Ondansetron HCl (Zofran Inj) 4 mg IVP Q4H PRN PRN Reason: Nausea/Vomiting Last Admin: 03/10/18 21:22 Dose: 4 mg Pantoprazole Sodium (Protonix Inj) 40 mg IVP DAILY [facility] Last Admin: 03/13/18 09:07 Dose: 40 mg Sodium Chloride ([place] Nasal [place]) 1 ml NS Q6H PRN PRN Reason: Nasal congestion Last Admin: 03/12/18 14:16 Dose: 2 sprays Ticagrelor (Brilinta) 90 mg PO BID [facility] Last Admin: 03/13/18 09:05 Dose: 90 mg Zolpidem Tartrate (Ambien) 5 mg PO HS PRN PRN Reason: Insomnia Last Admin: 03/12/18 21:28 Dose: 5 mg - Labs Labs: 03/13/18 05:30 03/13/18 05:30 PT 10.4 SECONDS (9.4-12.5) 03/10/18 11:49 INR 0.91 (0.93-1.08) L 03/10/18 11:49 - Constitutional Appears: No Acute Distress - Head Exam Head Exam: NORMAL INSPECTION - Eye Exam Eye Exam: Normal appearance - ENT Exam ENT Exam: Normal Exam - Neck Exam Neck Exam: Normal Inspection - Respiratory Exam Respiratory Exam: Rales. absent: Decreased Breath Sounds, Rhonchi, Wheezes, Respiratory Distress - Cardiovascular Exam Cardiovascular Exam: RRR, +S1, +S2. absent: Gallop, Rubs, Murmur - GI/Abdominal Exam GI & Abdominal Exam: Soft. absent: Distended, Guarding, Tenderness, Rebound - Extremities Exam Extremities Exam: Normal Inspection - Back Exam Back Exam: NORMAL INSPECTION - Neurological Exam Neurological Exam: Alert, Awake, CN II-XII Intact, Oriented x3 - Psychiatric Exam Psychiatric exam: Normal Affect, Normal Mood - Skin Skin Exam: Dry, Intact, Normal Color, Warm Assessment and Plan - Assessment and Plan (Free Text) Assessment: 62 F with PMHx of HTN, current smoker of 1.5 ppd x 40 plus years, and COPD presents to the ED chest pain and n/v. Found to have a STEMI - code heart called and BEATRICE was placed in the RCA. Possible transfer to [place] today. Plan: Neuro: - AAO x 3 - Stable Pulm: - Maintain SPO2 > 90 % - 2 L nasal cannula as needed - [id number] SURJIT and Q2H PRN - Solumedrol tapered to 20 mg Q12h CV: - Maintain MAP > 65 % - Cont Asa, Brilinta - Holding Lipitor due to elevated LFTs - Cont Morphine PRN - Heparin for DVT ppx - Troponin downtrending - Echo showed LVEF 52%, mild decrease in RV function and mild posterior hypokinesis - Cardiology consulted GI: - GI ppx - LFTs elevated will hold Lipitor Renal: - Avoid nephrotoxic medications - K 3, repleted, will monitor - Replete electrolytes as needed - Monitor I and O ID: - Afebrile, WBC downtrending - Cultures negative after 24 hrs - Cont to monitor off abx Heme: - Monitor H/H Case and plan was reviewed and discussed with Dr Winters. Joe Godwin, PGY1 <Gokul Winters - Last Filed: 03/13/18 12:13> Objective - Vital Signs/Intake and Output Vital Signs (last 24 hours): Temp Pulse Resp BP Pulse Ox 98.1 F 106 H 24 115/70 91 L 03/13/18 05:00 03/13/18 10:00 03/13/18 05:00 03/13/18 06:42 03/13/18 05:00 Intake and Output: 03/13/18 03/13/18 06:59 18:59 Intake Total 60 Output Total 1 Balance 59 - Medications Medications: Current Medications Acetaminophen (Tylenol 325mg Tab) 650 mg PO Q4H PRN PRN Reason: Pain, Mild (1-3) Last Admin: 03/10/18 16:07 Dose: 650 mg Albuterol/Ipratropium (Duoneb 3 Mg/0.5 Mg (3 Ml) Ud) 3 ml IH Q2H PRN PRN Reason: Shortness of Breath Last Admin: 03/13/18 03:10 Dose: 3 ml Albuterol/Ipratropium (Duoneb 3 Mg/0.5 Mg (3 Ml) Ud) 3 ml IH [id number] [facility] Last Admin: 03/13/18 07:36 Dose: 3 ml Alprazolam (Xanax) 0.25 mg PO TID [facility] Stop: 03/19/18 10:01 Last Admin: 03/13/18 09:09 Dose: 0.25 mg Aspirin (Ecotrin) 81 mg PO DAILY [facility] Last Admin: 03/13/18 09:09 Dose: 81 mg Budesonide (Pulmicort Respules) 0.5 mg IH [id number] [facility] Docusate Sodium (Colace) 100 mg PO BID [facility] Last Admin: 03/13/18 09:05 Dose: 100 mg Heparin Sodium (Porcine) (Heparin) 5,000 units SC Q8 [facility] PRN Reason: Protocol Last Admin: 03/13/18 06:42 Dose: 5,000 units Loperamide HCl (Imodium) 2 mg PO QID PRN PRN Reason: Diarrhea Last Admin: 03/13/18 11:07 Dose: 2 mg Methylprednisolone (Solu-Medrol) 20 mg IVP Q12 [facility] Last Admin: 03/13/18 11:11 Dose: Not Given Morphine Sulfate (Morphine) 2 mg IVP Q2H PRN PRN Reason: Pain, moderate (4-7) Last Admin: 03/11/18 07:26 Dose: 2 mg Ondansetron HCl (Zofran Inj) 4 mg IVP Q4H PRN PRN Reason: Nausea/Vomiting Last Admin: 03/10/18 21:22 Dose: 4 mg Pantoprazole Sodium (Protonix Ec Tab) 40 mg PO ACB [facility] Sodium Chloride ([place] Nasal [place]) 1 ml NS Q6H PRN PRN Reason: Nasal congestion Last Admin: 03/12/18 14:16 Dose: 2 sprays Ticagrelor (Brilinta) 90 mg PO BID [facility] Last Admin: 03/13/18 09:05 Dose: 90 mg Zolpidem Tartrate (Ambien) 5 mg PO HS PRN PRN Reason: Insomnia Last Admin: 03/12/18 21:28 Dose: 5 mg - Labs Labs: 03/13/18 05:30 03/13/18 05:30 PT 10.4 SECONDS (9.4-12.5) 03/10/18 11:49 INR 0.91 (0.93-1.08) L 03/10/18 11:49 Assessment and Plan - Assessment and Plan (Free Text) Plan: Patient seen and examined with resident, on rounds, agree with note with following additions/exceptions: Patient is 62yo female, with PMhx of heavy smoker, admitted with acute STEMI, s/ p PCI, RCA prox stent. Currently patient is afebrile, HD stable, awake, alert in NAD. EKG done this yesterday, shows improvement in BROOKE in inferior leads, repeat cardiac enzymes noted, downtrending. Increasing WBC noted, infectious workup negative thus far. Patient is awaiting transfer to [facility], under Dr Mercado STEMI Inferior wall [place] Hx of Smoking Hypotension, resolved Recommend: - supp o2 as needed, goal sat>90% - duonebs PRN - Lasix 40mg PO daily - Solumedrol 40mg BID IV - Pulmicort BID - ASA, Brillinta, Statin - Hold BB - follow up cardiology - monitor electrolytes - monitor HH - FS control - GI ppx - DVT ppx - stable, awaiting transfer to [facility] in [facility], as per the family' s request
--- NOTE | 2018-03-13 19:09 | CON ---
DATE: 03/13/2018 PULMONARY CONSULTATION REFERRING PHYSICIAN: Joel Kapoor MD REASON FOR CONSULTATION: Chronic obstructive pulmonary disease. History is obtained via extensive discussion with the ICU residents. I have also discussed the case with the patient at length, and reviewed the chart at length. HISTORY OF PRESENT ILLNESS: The patient is a 62-year-old female, with past medical history significant for hypertension, chronic obstructive pulmonary disease, positive extensive smoking history, who presented to [facility] - originally on 03/10/2018 - after a syncopal episode at home. Apparently, the patient started to experience severe dizziness/lightheadedness, severe nausea with episodes of vomiting, and chest tightness. Soon after the symptoms started, the patient did lose consciousness. EMS was then called emergently to the home. I have also reviewed the emergency room notes. Upon EMS arrival, the patient was found to be diaphoretic, and transferred emergently to [facility]. In the emergency room, the patient was diagnosed with an acute myocardial infarction. She was thus admitted for additional evaluation. Code heart was called. The patient is not short of breath at rest. She does have chronic dyspnea on exertion. She also has a chronic occasional cough with occasional sputum production - unchanged. As above, the patient did present with chest tightness. She denies chest discomfort at the present time. There is no history of coughing up of blood. There is no history of chest discomfort - made worse with deep respirations. There is no history of temperatures, chills, or infectious exposure. There is no history of night sweats, weight loss, or appetite change prior to the above events. No history of leg or calf pains. No history of recent travel or trauma. REVIEW OF SYSTEMS: No acute urinary symptoms. No new musculoskeletal complaints. Rest of the review of systems is negative. ALLERGIES: NO KNOWN ALLERGIES. SOCIAL HISTORY: Positive for extensive tobacco usage, also positive for alcohol usage. FAMILY HISTORY: No inheritable diseases. HOME MEDICATIONS: None listed in the chart. PHYSICAL EXAMINATION: GENERAL: The patient appears comfortable this morning. She is not short of breath at rest. VITAL SIGNS: Temperature is 98.1, pulse on the monitor is 94, respiratory rate 20, blood pressure 115/70. Oxygen saturation on 30% Venti mask is 92%. HEENT: Normocephalic, atraumatic. No JVD. CARDIOVASCULAR: Positive S1, S2. No S3 gallop. LUNGS: Decreased breath sounds at the bases. Minimal bilateral rhonchi. No wheezing. EXTREMITIES: No clubbing, cyanosis, or edema. Calves are nontender to palpation. GI: Abdomen is soft, nontender, and nondistended. Bowel sounds are positive. SKIN: No acute rash. NEUROLOGIC: Limited at the present time. PERTINENT LABORATORY DATA: Chest x-ray was done on 03/12/2018, and reviewed. There is no active disease present. CBC: White count 16.9K, hemoglobin 14.2, hematocrit 41.5, and platelets of 218,000. Complete metabolic profile: Potassium 3, chloride 112. Glucose 133. AST 201, ALT 134. Troponin 25.60. Total protein 5.6. Rest of the metabolic profile is within normal limits. Peak troponin during this admission 58.80. IMPRESSION: 1. Acute myocardial infarction, status post cardiac stent. 2. Multivessel coronary artery disease. 3. Chronic obstructive pulmonary disease - possibly advanced. 4. Mild bronchospasm. PLAN: Again, I did discuss the case with the ICU residents at length. I have also reviewed the chart at length, and discussed case with the patient at length. The patient presented to [facility] - originally on 03/10/2018 - after a syncopal episode at home. Preceding the syncopal episode, the patient stated to severe dizziness/lightheadedness, severe nausea with episodes of vomiting, and chest tightness. As above, in the emergency room, the patient was diagnosed with an acute myocardial infarction. The patient was then taken to the catheterization lab with Dr. Trevino. A cardiac stent was placed in the right coronary artery. I did review the last chest x-ray done. It shows no acute disease. On physical exam, there is mild bronchospasm appreciated. I will continue with the current nebulizer treatments and low-dose intravenous steroids for now. I will also add inhaled Pulmicort. Again, the patient does have an extensive smoking history. When out of the ICU, in the near future, I would like to obtain a pulmonary function test. The patient states that she has never been seen by a affiliate marketing manager before. There is also a mild increase in the alveolar-arterial gradient. Incentive spirometry has also been added by the ICU team. The clinical status of the patient is significantly improved - compared to the initial presentation. However, her future status/prognosis does appear very guarded. Again, I would like to obtain a pulmonary function test in the near future. I did discuss the above with the ICU team this morning. I will also discuss the above with the attending physician. Thank you very much for this pulmonary consultation. Hai Coffey MD MTDD
[2018-03-13] MEDS: Budesonide 0.5 mg/2 ml Inhal Susp UD IH SCH (19:30)
[2018-03-14] MEDS: Albuterol-Ipratrop 3 mg / 0.5 (3 ml) UD IH SCH ×4 (01:00→20:00)
[2018-03-14 06:52] LABS: GRAN # 11.02 (1.4-6.5); GRAN % 85.9 % (50.0-68.0); HEMOGLOBIN 13.2 g/dL (12.0-16.0); LYMPH # 1.1 (1.2-3.4); LYMPH % 8.3 % (22.0-35.0); MEAN CELL VOLUME 97.8 fl (80.0-105.0); MEAN CORPUSCULAR HGB CONC 33.8 g/dl (31.0-37.0); MEAN PLATELET VOLUME 10.8 fl (7.0-11.0); MONO # 0.7 (0.1-0.6); MONO % 5.8 % (1.0-6.0); RED CELL DISTRIBUTION WIDTH 14.1 % (11.5-14.5); WHITE BLOOD COUNT 12.8 10^3/ul (4.5-11.0)
[2018-03-14 07:07] LABS: ALB/GLOB RATIO 1.3 (1.1-1.8); ALBUMIN 3.3 g/dL (3.0-4.8); ALT/SGPT 111 U/L (7-56); AST/SGOT 97 U/L (14-36); BLOOD UREA NITROGEN 23 mg/dL (7-21); CALCIUM 9.2 mg/dL (8.4-10.5); GFR AFRICAN-AMERICAN > 60; GFR NON-AFRICAN AMERICAN > 60
[2018-03-14] MEDS: Budesonide 0.5 mg/2 ml Inhal Susp UD IH SCH ×2 (07:22→20:00)
[2018-03-14] MEDS: Pantoprazole 40 mg EC Tab PO SCH (07:44)
--- NOTE | 2018-03-14 07:56 | CP.PCM.PN ---
Subjective - Date & Time of Evaluation Date of Evaluation: 03/14/18 Time of Evaluation: 07:00 - Subjective Subjective: Stable in ICU. She feels better. No CP. Still some GRAHAM but better. V/S noted. RSR, S. Dale., occ. Mirna 1 noted. PE: Lungs: rhonchi Cor.: S1S2 Abd.: soft Ext.: no edema Neuro.: alert I/O= N/A Labs noted: WBC 12,800, K+= 3.7 H/H = 13/39 CXR 03/12 noted: NAD ECG 03/12 noted: RSR, Mobitz 1, Ev IMI, STTW changes Objective - Vital Signs/Intake and Output Vital Signs (last 24 hours): Temp Pulse Resp BP Pulse Ox 97.7 F 67 22 116/60 94 L 03/14/18 06:00 03/14/18 06:20 03/14/18 06:20 03/14/18 06:01 03/14/18 06:20 Intake and Output: 03/14/18 03/14/18 06:59 18:59 Intake Total 240 Output Total 0 Balance 240 - Medications Medications: Current Medications Acetaminophen (Tylenol 325mg Tab) 650 mg PO Q4H PRN PRN Reason: Pain, Mild (1-3) Last Admin: 03/10/18 16:07 Dose: 650 mg Albuterol/Ipratropium (Duoneb 3 Mg/0.5 Mg (3 Ml) Ud) 3 ml IH Q2H PRN PRN Reason: Shortness of Breath Last Admin: 03/13/18 03:10 Dose: 3 ml Albuterol/Ipratropium (Duoneb 3 Mg/0.5 Mg (3 Ml) Ud) 3 ml IH [id number] [facility] Last Admin: 03/14/18 07:22 Dose: 3 ml Alprazolam (Xanax) 0.25 mg PO TID [facility] Stop: 03/19/18 10:01 Last Admin: 03/13/18 17:28 Dose: 0.25 mg Aspirin (Ecotrin) 81 mg PO DAILY [facility] Last Admin: 03/13/18 09:09 Dose: 81 mg Budesonide (Pulmicort Respules) 0.5 mg [facility]H [id number] [facility] Last Admin: 03/14/18 07:22 Dose: 0.5 mg Docusate Sodium (Colace) 100 mg PO BID [facility] Last Admin: 03/13/18 09:05 Dose: 100 mg Heparin Sodium (Porcine) (Heparin) 5,000 units SC Q8 [facility] PRN Reason: Protocol Last Admin: 03/14/18 06:41 Dose: 5,000 units Loperamide HCl (Imodium) 2 mg PO QID PRN PRN Reason: Diarrhea Last Admin: 03/13/18 17:29 Dose: 2 mg Methylprednisolone (Solu-Medrol) 20 mg IVP Q12 [facility] Last Admin: 03/13/18 22:14 Dose: 20 mg Morphine Sulfate (Morphine) 2 mg IVP Q2H PRN PRN Reason: Pain, moderate (4-7) Last Admin: 03/11/18 07:26 Dose: 2 mg Ondansetron HCl (Zofran Inj) 4 mg IVP Q4H PRN PRN Reason: Nausea/Vomiting Last Admin: 03/10/18 21:22 Dose: 4 mg Pantoprazole Sodium (Protonix Ec Tab) 40 mg PO ACB [facility] Sodium Chloride ([place] Nasal [place]) 1 ml NS Q6H PRN PRN Reason: Nasal congestion Last Admin: 03/12/18 14:16 Dose: 2 sprays Ticagrelor (Brilinta) 90 mg PO BID [facility] Last Admin: 03/13/18 17:28 Dose: 90 mg Zolpidem Tartrate (Ambien) 5 mg PO HS PRN PRN Reason: Insomnia Last Admin: 03/13/18 22:14 Dose: 5 mg - Labs Labs: 03/14/18 05:25 03/14/18 05:25 PT 10.4 SECONDS (9.4-12.5) 03/10/18 11:49 INR 0.91 (0.93-1.08) L 03/10/18 11:49 Assessment and Plan - Assessment and Plan (Free Text) Assessment: Acute IMI with occluded, large RCA and PCI BEATRICE 03/10/18 RV infarction Severe COPD/H/O smoking PVD HBP H/O GB surgery Plan: Continue ASA, and Brilinta (min. 1 year). No beta royal in view of Sinus [place] with Mobitz 1 AVB. Statin. Replace K+ Respiratory Tx. Pulmonary Consultation and Tx. Patient/Family are arranging transfer to [facility] today. I spoke with Dr. Torres by phone yesterday. OOB to chair as car. No smoking d/w her again today.
--- NOTE | 2018-03-14 09:44 | PN ---
DATE: 03/14/2018 PULMONARY NOTE SUBJECTIVE: The patient appears comfortable this morning. She is not short of breath at rest. OBJECTIVE: VITAL SIGNS: Temperature is 97.7, pulse is 74, respirations 18, blood pressure 116/60. Oxygen saturation on Ventimask is 94%. HEENT: Normocephalic, atraumatic. No JVD. CARDIOVASCULAR: Positive S1, S2. No S3 gallop. LUNGS: Decreased breath sounds at the bases. Very minimal/less rhonchi. No wheezing. EXTREMITIES: No clubbing, cyanosis or edema. Calves are nontender to palpation. GASTROINTESTINAL: Abdomen is soft, nontender and nondistended. Bowel sounds are positive. SKIN: No acute rash. NEUROLOGIC: Exam limited at the present time. IMPRESSION: 1. Acute myocardial infarction, status post cardiac stent. 2. Multivessel coronary artery disease. 3. Chronic obstructive pulmonary disease - possibly advanced. 4. Mild bronchospasm - decreased. PLAN: The patient appears comfortable this morning. She is not short of breath at rest. She has no chest discomfort. She does state to feeling much better overall. I did discuss the case with the night nurse at length. The night nurse stated the patient had a very good night. On physical exam, there is less bronchospasm noted. In addition, there is less of an alveolar-arterial gradient. As the patient is on a 30% Ventimask, we can easily change to nasal cannula at this point in time--discussed with nurse. In addition, I will continue with the current nebulizer treatments, inhaled steroids, and low-dose intravenous steroids for now. The patient is also reminded to use her incentive spirometer. I would continue with the treatment for acute myocardial infarction, and multivessel coronary artery disease as per Cardiology. Input by Dr. Kapoor is noted. The clinical status of the patient is significantly improved - compared to her initial hospital status. She is for possible transfer to [facility]. I will discuss the above with the entire ICU team in the next few moments. I will also discuss the above with the attending physician. Hai Coffey MD ELIZA
[2018-03-14] MEDS: MethylPREDNISolone 40 mg Vial IVP SCH ×2 (09:56→22:10)
--- NOTE | 2018-03-14 13:17 | CP.CCUPN ---
<Shoaib Godwin - Last Filed: 03/14/18 13:07> CCU Subjective - Physician Review Subjective (Free Text): ICU Progress Note Pt seen and examined at bedside. No acute events overnight. Patient states that her breathing has not returned to baseline as she is still short of breath at rest. Pt denied CP, palpitations, n/v/d, abdominal pain, fever, chills, MARTINEZ, or dizziness. CCU Objective - Vital Signs / Intake & Output Vital Signs (Last 4 hours): Vital Signs Pulse 03/14/18 10:00 62 Intake and Output (Last 8hrs): Intake & Output 03/13/18 03/14/18 03/14/18 22:59 06:59 14:59 Intake Total 240 Output Total 0 Balance 240 Weight 87.77 kg Intake: IV 0 Left Forearm 0 Right Forearm 0 Oral 240 Tube Feeding 0 TPN/PPN 0 Blood Product 0 Lipid 0 Albumin 0 Other 0 Output: Urine 0 Urethral (Kaur) 0 Stool 0 Urine/Stool Mix 0 Emesis 0 Oral Regurgitation 0 Other 0 Other: Voiding Method Bedside Commode # Voids Urethral (Kaur) 1 # Bowel Movements 0 - Physical Exam Head: Positive for: Atraumatic, Normocephalic Pupils: Positive for: PERRL, Other (no nystagmus, no photophobia, sclera anicteric) Extroacular Muscles: Positive for: EOMI Conjunctiva: Positive for: Normal Ears: Positive for: Normal Mouth: Positive for: Moist Mucous Membranes, Normal Teeth Pharnyx: Positive for: Normal Nose (External): Positive for: Atraumatic Nose (Internal): Positive for: Normal Inspection Neck: Positive for: Normal Range of Motion, Trachea Midline. Negative for: Meningeal Signs, MIDLINE TENDERNESS, Paraspinal Tenderness Respiratory/Chest: Positive for: Clear to Auscultation, Good Air Exchange. Negative for: Respiratory Distress, Accessory Muscle Use, Wheezes, Rales, Rhonchi Cardiovascular: Positive for: Normal S1, S2, Bradycardic. Negative for: Murmurs Abdomen: Positive for: Normal Bowel Sounds, Other (well nourished female, no focal tenderness, no masses/rebound/guarding/rigidity; no hammonds's sign, no mcburney's point tenderness). Negative for: Tenderness, Distention, Peritoneal Signs Back: Positive for: Normal Inspection. Negative for: CVA Tenderness, Midline Tenderness, Paraspinal Tenderness Upper Extremity: Positive for: Normal Inspection, Normal ROM, NORMAL PULSES, Neurovascularly Intact. Negative for: Cyanosis, Edema, Capillary Refill < 2s (~ 1 second) Lower Extremity: Positive for: Normal Inspection, NORMAL PULSES, Normal ROM, Neurovascularly Intact. Negative for: Edema, Capillary Refill < 2 s Neurological: Positive for: GCS=15, CN II-XII Intact, Speech Normal Skin: Positive for: Warm, Other (slightly pale, cap refill ~ 1-2 sec). Negative for: Rashes Psychiatric: Positive for: Alert, Oriented x 3, Normal Insight, Normal Concentration - Medications Active Medications: Active Medications Generic Name Dose Route Start Last Admin Trade Name Freq PRN Reason Stop Dose Admin Acetaminophen 650 mg 03/10/18 12:46 03/10/18 16:07 Tylenol 325mg Tab PO 650 mg Q4H PRN Administration Pain, Mild (1-3) Albuterol/Ipratropium 3 ml 03/10/18 14:55 03/13/18 03:10 Duoneb 3 Mg/0.5 Mg (3 Ml) Ud IH 3 ml Q2H PRN Administration Shortness of Breath Albuterol/Ipratropium 3 ml 03/10/18 20:00 03/14/18 07:22 Duoneb 3 Mg/0.5 Mg (3 Ml) Ud IH 3 ml [id number] SURJIT Administration Alprazolam 0.25 mg 03/12/18 10:00 03/14/18 09:56 Xanax PO 03/19/18 10:01 0.25 mg TID SURJIT Administration Aspirin 81 mg 03/11/18 10:00 03/14/18 09:56 Ecotrin PO 81 mg DAILY SURJIT Administration Atorvastatin Calcium 20 mg 03/14/18 17:00 Lipitor PO DIN SURJIT Budesonide 0.5 mg 03/13/18 20:00 03/14/18 07:22 Pulmicort Respules IH 0.5 mg [id number] SURJIT Administration Docusate Sodium 100 mg 03/10/18 18:00 03/13/18 09:05 Colace PO 100 mg BID SURJIT Administration Heparin Sodium (Porcine) 5,000 units 03/11/18 17:45 03/14/18 06:41 Heparin SC 5,000 units Q8 SURJIT Administration Protocol Loperamide HCl 2 mg 03/13/18 10:35 03/13/18 17:29 Imodium PO 2 mg QID PRN Administration Diarrhea Methylprednisolone 20 mg 03/13/18 09:28 03/14/18 09:56 Solu-Medrol IVP 20 mg Q12 SURJIT Administration Morphine Sulfate 2 mg 03/10/18 13:11 03/11/18 07:26 Morphine IVP 2 mg Q2H PRN Administration Pain, moderate (4-7) Ondansetron HCl 4 mg 03/10/18 13:24 03/10/18 21:22 Zofran Inj IVP 4 mg Q4H PRN Administration Nausea/Vomiting Pantoprazole Sodium 40 mg 03/14/18 07:30 03/14/18 07:44 Protonix Ec Tab PO 40 mg ACB SURJIT Administration Sodium Chloride 1 ml 03/11/18 18:03 03/12/18 14:16 Shorter Nasal Hughes NS 2 sprays Q6H PRN Administration Nasal congestion Ticagrelor 90 mg 03/10/18 18:00 03/14/18 09:56 Brilinta PO 90 mg BID SURJIT Administration Zolpidem Tartrate 5 mg 03/10/18 12:46 03/13/18 22:14 Ambien PO 5 mg HS PRN Administration Insomnia - Patient Studies Lab Studies: Microbiology Studies 03/12/18 10:00 Blood Culture - Preliminary Blood NO GROWTH AFTER 48 HOURS 03/12/18 09:30 Blood Culture - Preliminary Blood NO GROWTH AFTER 48 HOURS Lab Studies 03/14/18 03/14/18 Range/Units 05:25 05:25 WBC 12.8 H D (4.5-11.0) 10^3/ul RBC 4.00 (3.5-6.1) 10^6/uL Hgb 13.2 (12.0-16.0) g/dL Hct 39.1 (36.0-48.0) % MCV 97.8 (80.0-105.0) fl MCH 33.0 (25.0-35.0) pg MCHC 33.8 (31.0-37.0) g/dl RDW 14.1 (11.5-14.5) % Plt Count 208 (120.0-450.0) 10^3/uL MPV 10.8 (7.0-11.0) fl Gran % 85.9 H (50.0-68.0) % Lymph % (Auto) 8.3 L (22.0-35.0) % Nuckolls % (Auto) 5.8 (1.0-6.0) % Eos % (Auto) 0.0 L (1.5-5.0) % Baso % (Auto) 0.0 (0.0-3.0) % Gran # 11.02 H (1.4-6.5) Lymph # (Auto) 1.1 L (1.2-3.4) Nuckolls # (Auto) 0.7 H (0.1-0.6) Eos # (Auto) 0.0 (0.0-0.7) Baso # (Auto) 0.00 (0.0-2.0) K/mm3 Sodium 146 (132-148) mmol/L Potassium 3.7 (3.6-5.0) mmol/L Chloride 111 H (98-107) mmol/L Carbon Dioxide 27 (21-33) mmol/L Anion Gap 12 (10-20) BUN 23 H (7-21) mg/dL Creatinine 0.7 (0.7-1.2) mg/dl Est GFR ( Amer) > 60 Est GFR (Non-Af Amer) > 60 Random Glucose 134 H (70-110) mg/dL Calcium 9.2 (8.4-10.5) mg/dL Total Bilirubin 0.6 (0.2-1.3) mg/dL AST 97 H D (14-36) U/L ALT 111 H (7-56) U/L Alkaline Phosphatase 64 (38-126) U/L Total Protein 5.8 (5.8-8.3) g/dL Albumin 3.3 (3.0-4.8) g/dL Globulin 2.5 gm/dL Albumin/Globulin Ratio 1.3 (1.1-1.8) Laboratory Results - last 24 hr 03/14/1818 05:25 05:25 WBC 12.8 H D RBC 4.00 Hgb 13.2 Hct 39.1 MCV 97.8 MCH 33.0 MCHC 33.8 RDW 14.1 Plt Count 208 MPV 10.8 Gran % 85.9 H Lymph % (Auto) 8.3 L Nuckolls % (Auto) 5.8 Eos % (Auto) 0.0 L Baso % (Auto) 0.0 Gran # 11.02 H Lymph # (Auto) 1.1 L Nuckolls # (Auto) 0.7 H Eos # (Auto) 0.0 Baso # (Auto) 0.00 Sodium 146 Potassium 3.7 Chloride 111 H Carbon Dioxide 27 Anion Gap 12 BUN 23 H Creatinine 0.7 Est GFR ( Amer) > 60 Est GFR (Non-Af Amer) > 60 Random Glucose 134 H Calcium 9.2 Total Bilirubin 0.6 AST 97 H D ALT 111 H Alkaline Phosphatase 64 Total Protein 5.8 Albumin 3.3 Globulin 2.5 Albumin/Globulin Ratio 1.3 Assessment/Plan - Assessment and Plan (Free Text) Assessment: 62 F with PMHx of HTN, current smoker of 1.5 ppd x 40 plus years, and COPD presents to the ED chest pain and n/v. Found to have a STEMI - code heart called and BEATRICE was placed in the RCA. Patient will be transferred to telemetry , pending transfer to [place], under Dr. Mercado. Plan: Neuro: - AAO x 3 - Maintain normothermia - Stable Pulm: - Maintain SPO2 > 90 % - 2L nasal cannula as needed - [id number] SURJIT and Q2H PRN - Solumedrol 20 mg Q12h - Pulmicort - Pulmonology consulted CV: - Maintain MAP > 65 % - Cont Asa, Brilinta, Lipitor - Holding beta-royal due to bradycardia - Cont Morphine PRN - Heparin for DVT ppx - Troponin downtrending - Echo showed LVEF 52%, mild decrease in RV function and mild posterior hypokinesis - Cardiology consulted GI: - LFT's elevated, trending down - Lipitor 20 mg PO DIN - Protonix for GI PPx Renal: - Avoid nephrotoxic medications - Maintain euvolemia - Potassium WNL today - Replete electrolytes as needed - Monitor I and O ID: - Afebrile, WBC downtrending - Cultures negative after 24 hrs - Cont to monitor off abx Heme: - Monitor H/H - Heparin for DVT PPx Endo: - Maintain euglycemia Case and plan was reviewed and discussed with Dr. rIizarry. Joe Godwin, PGY1 <Chicho Irizarry - Last Filed: 05/08/18 15:39> CCU Objective - Vital Signs / Intake & Output Intake and Output (Last 8hrs): Intake & Output 03/14/18 03/14/18 03/14/18 06:59 14:59 22:59 Intake Total 240 Output Total 0 Balance 240 Weight 193 lb 8 oz Intake: IV 0 Left Forearm 0 Right Forearm 0 Oral 240 Tube Feeding 0 TPN/PPN 0 Blood Product 0 Lipid 0 Albumin 0 Other 0 Output: Urine 0 Urethral (Kaur) 0 Stool 0 Urine/Stool Mix 0 Emesis 0 Oral Regurgitation 0 Other 0 Other: # Voids Urethral (Kaur) 1 # Bowel Movements 0 - Medications Active Medications: Active Medications Generic Name Dose Route Start Last Admin Trade Name Freq PRN Reason Stop Dose Admin Acetaminophen 650 mg 03/10/18 12:46 03/10/18 16:07 Tylenol 325mg Tab PO 650 mg Q4H PRN Administration Pain, Mild (1-3) Albuterol/Ipratropium 3 ml 03/10/18 14:55 03/13/18 03:10 Duoneb 3 Mg/0.5 Mg (3 Ml) Ud IH 3 ml Q2H PRN Administration Shortness of Breath Albuterol/Ipratropium 3 ml 03/10/18 20:00 03/14/18 13:22 Duoneb 3 Mg/0.5 Mg (3 Ml) Ud IH 3 ml [id number] SURJIT Administration Alprazolam 0.25 mg 03/12/18 10:00 03/14/18 14:10 Xanax PO 03/19/18 10:01 0.25 mg TID SURJIT Administration Aspirin 81 mg 03/11/18 10:00 03/14/18 09:56 Ecotrin PO 81 mg DAILY SURJIT Administration Atorvastatin Calcium 20 mg 03/14/18 17:00 Lipitor PO DIN SURJIT Budesonide 0.5 mg 03/13/18 20:00 03/14/18 07:22 Pulmicort Respules IH 0.5 mg [id number] SURJIT Administration Docusate Sodium 100 mg 03/10/18 18:00 03/13/18 09:05 Colace PO 100 mg BID SURJIT Administration Heparin Sodium (Porcine) 5,000 units 03/11/18 17:45 03/14/18 14:09 Heparin SC 5,000 units Q8 SURJIT Administration Protocol Loperamide HCl 2 mg 03/13/18 10:35 03/13/18 17:29 Imodium PO 2 mg QID PRN Administration Diarrhea Methylprednisolone 20 mg 03/13/18 09:28 03/14/18 09:56 Solu-Medrol IVP 20 mg Q12 SURJIT Administration Ondansetron HCl 4 mg 03/10/18 13:24 03/10/18 21:22 Zofran Inj IVP 4 mg Q4H PRN Administration Nausea/Vomiting Pantoprazole Sodium 40 mg 03/14/18 07:30 03/14/18 07:44 Protonix Ec Tab PO 40 mg ACB SURJIT Administration Sodium Chloride 1 ml 03/11/18 18:03 03/12/18 14:16 Shorter Nasal Hughes NS 2 sprays Q6H PRN Administration Nasal congestion Ticagrelor 90 mg 03/10/18 18:00 03/14/18 09:56 Brilinta PO 90 mg BID SURJIT Administration Zolpidem Tartrate 5 mg 03/10/18 12:46 03/13/18 22:14 Ambien PO 5 mg HS PRN Administration Insomnia - Patient Studies Lab Studies: Microbiology Studies 03/12/18 10:00 Blood Culture - Preliminary Blood NO GROWTH AFTER 48 HOURS 03/12/18 09:30 Blood Culture - Preliminary Blood NO GROWTH AFTER 48 HOURS Lab Studies 03/14/18 03/14/18 Range/Units 05:25 05:25 WBC 12.8 H D (4.5-11.0) 10^3/ul RBC 4.00 (3.5-6.1) 10^6/uL Hgb 13.2 (12.0-16.0) g/dL Hct 39.1 (36.0-48.0) % MCV 97.8 (80.0-105.0) fl MCH 33.0 (25.0-35.0) pg MCHC 33.8 (31.0-37.0) g/dl RDW 14.1 (11.5-14.5) % Plt Count 208 (120.0-450.0) 10^3/uL MPV 10.8 (7.0-11.0) fl Gran % 85.9 H (50.0-68.0) % Lymph % (Auto) 8.3 L (22.0-35.0) % Nuckolls % (Auto) 5.8 (1.0-6.0) % Eos % (Auto) 0.0 L (1.5-5.0) % Baso % (Auto) 0.0 (0.0-3.0) % Gran # 11.02 H (1.4-6.5) Lymph # (Auto) 1.1 L (1.2-3.4) Nuckolls # (Auto) 0.7 H (0.1-0.6) Eos # (Auto) 0.0 (0.0-0.7) Baso # (Auto) 0.00 (0.0-2.0) K/mm3 Sodium 146 (132-148) mmol/L Potassium 3.7 (3.6-5.0) mmol/L Chloride 111 H (98-107) mmol/L Carbon Dioxide 27 (21-33) mmol/L Anion Gap 12 (10-20) BUN 23 H (7-21) mg/dL Creatinine 0.7 (0.7-1.2) mg/dl Est GFR ( Amer) > 60 Est GFR (Non-Af Amer) > 60 Random Glucose 134 H (70-110) mg/dL Calcium 9.2 (8.4-10.5) mg/dL Total Bilirubin 0.6 (0.2-1.3) mg/dL AST 97 H D (14-36) U/L ALT 111 H (7-56) U/L Alkaline Phosphatase 64 (38-126) U/L Total Protein 5.8 (5.8-8.3) g/dL Albumin 3.3 (3.0-4.8) g/dL Globulin 2.5 gm/dL Albumin/Globulin Ratio 1.3 (1.1-1.8) Laboratory Results - last 24 hr 03/14/18 03/14/18 05:25 05:25 WBC 12.8 H D RBC 4.00 Hgb 13.2 Hct 39.1 MCV 97.8 MCH 33.0 MCHC 33.8 RDW 14.1 Plt Count 208 MPV 10.8 Gran % 85.9 H Lymph % (Auto) 8.3 L Nuckolls % (Auto) 5.8 Eos % (Auto) 0.0 L Baso % (Auto) 0.0 Gran # 11.02 H Lymph # (Auto) 1.1 L Nuckolls # (Auto) 0.7 H Eos # (Auto) 0.0 Baso # (Auto) 0.00 Sodium 146 Potassium 3.7 Chloride 111 H Carbon Dioxide 27 Anion Gap 12 BUN 23 H Creatinine 0.7 Est GFR ( Amer) > 60 Est GFR (Non-Af Amer) > 60 Random Glucose 134 H Calcium 9.2 Total Bilirubin 0.6 AST 97 H D ALT 111 H Alkaline Phosphatase 64 Total Protein 5.8 Albumin 3.3 Globulin 2.5 Albumin/Globulin Ratio 1.3 Attending/Attestation - Attestation I have personally seen and examined this patient.: Yes I have fully participated in the care of the patient.: Yes I have reviewed all pertinent clinical information: Yes Notes (Text): 03/14/18 15:29 62 yo female with multiple cardiovascular risk factors, including active smoking , now admitted for acute OR, s/p RCA stent. Subjectively is doing better, would consider DAP, bb, statins, ACEI. Likely has COPD-->would consider pulm f/u and PFTs, if confirmed-->needs triple inhaler tx, pulm rehab (if cleared by cardio as well), infection prophylaxis with vaccination. All above will be deferred to cardiology and private pulmonary service. Of note selective bb are not contraindicated in COPD/COPD exacerbation. Discussed with Dr. Kapoor and Dr. Coffey-->ok to downgrade to tele. ccm time 40 min 03/14/18 15:38
[2018-03-15] MEDS: Albuterol-Ipratrop 3 mg / 0.5 (3 ml) UD IH SCH ×4 (03:05→21:19)
[2018-03-15 06:53] LABS: GRAN # 7.91 (1.4-6.5); GRAN % 81.2 % (50.0-68.0); LYMPH # 1.3 (1.2-3.4); LYMPH % 12.8 % (22.0-35.0); MEAN CELL VOLUME 97.7 fl (80.0-105.0); MEAN CORPUSCULAR HGB CONC 33.8 g/dl (31.0-37.0); MEAN PLATELET VOLUME 11.3 fl (7.0-11.0); MONO # 0.6 (0.1-0.6); RBC 3.94 10^6/uL (3.5-6.1); WHITE BLOOD COUNT 9.7 10^3/ul (4.5-11.0)
[2018-03-15 07:30] LABS: ALB/GLOB RATIO 1.2 (1.1-1.8); ALBUMIN 3.2 g/dL (3.0-4.8); ALT/SGPT 100 U/L (7-56); AST/SGOT 52 U/L (14-36); BLOOD UREA NITROGEN 23 mg/dL (7-21); CALCIUM 9.1 mg/dL (8.4-10.5); GFR AFRICAN-AMERICAN > 60; GFR NON-AFRICAN AMERICAN > 60
[2018-03-15] MEDS: Budesonide 0.5 mg/2 ml Inhal Susp UD IH SCH ×2 (08:33→21:19)
--- NOTE | 2018-03-15 08:52 | PN ---
DATE: 03/15/2018 PULMONARY NOTE SUBJECTIVE: The patient appears very comfortable this morning. She is not short of breath at rest. PHYSICAL EXAMINATION: VITAL SIGNS: Temperature is 98, pulse is 68, respiratory rate 18, blood pressure 97/52. Oxygen saturation on nasal cannula is 96%. HEENT: Normocephalic, atraumatic. No JVD. CARDIOVASCULAR: Positive S1, S2. No S3 gallop. LUNGS: Improved breath sounds at the bases. Minimal/less rhonchi. No wheezing. EXTREMITIES: No clubbing, cyanosis or edema. Calves are nontender to palpation. GI: Abdomen is soft, nontender and nondistended. Bowel sounds are positive. SKIN: No acute rash. NEUROLOGIC: Limited at the present time. IMPRESSION: 1. Acute myocardial infarction, status post cardiac stent. 2. Multivessel coronary artery disease. 3. Chronic obstructive pulmonary disease - possibly advanced. 4. Mild bronchospasm - resolving. PLAN: The patient appears very comfortable this morning. She is not short of breath at rest. She does state to feeling much, much better overall. I did discuss the case with the night nurse at length. The night nurse stated that the patient had a very good night. On physical exam, her bronchospasm continues to resolve. In addition, the alveolar arterial gradient also continues to resolve. I will continue with the current nebulizer treatments and change to oral steroids this morning. I would continue with the treatment for acute myocardial infarction and multivessel coronary artery disease as per Cardiology. Inputs are noted. The clinical status of the patient is significantly improved overall. The patient is advised to be out of bed as much as possible. I will discuss the above with the attending physician, and ICU team. Hai Coffey MD [facility]
[2018-03-15] MEDS: Pantoprazole 40 mg EC Tab PO SCH (09:34)
--- NOTE | 2018-03-15 10:11 | CARD ---
APPROVED REPORT EKG Measurement Heart [id number] <Conclusion> Sinus bradycardia with 1st degree AV block Inferior infarct, possibly acute ACUTE NE Consider right ventricular involvement in acute inferior infarct Abnormal ECG
--- NOTE | 2018-03-15 11:53 | PN ---
DATE: 03/15/2018 SUBJECTIVE: The patient is seen sitting in a chair in the CCU. She is comfortable at the present time. Her breathing is improved. She denies any chest pain. CURRENT MEDICATIONS: Include Brilinta 90 mg b.i.d., albuterol inhaler, Ecotrin 81 mg daily, subcutaneous heparin, Lipitor 20 mg daily, prednisone 30 mg daily, Protonix 40 mg daily, Pulmicort inhaler, Xanax p.r.n. OBJECTIVE: GENERAL: She is a middle-aged woman, who appears more comfortable. VITAL SIGNS: Blood pressure is 128/86 with pulse of 64, respirations are 14. She is afebrile. HEENT: No JVD. CHEST: Bilateral scattered rhonchi and wheezing. No rales heard. HEART: PMI in normal position. Systolic murmur is noted in the lower left sternal border. ABDOMEN: Soft, nontender, normoactive bowel sounds. EXTREMITIES: Trace ankle edema. DIAGNOSTIC DATA: Potassium 3.1, BUN and creatinine 23 and 0.6, glucose is 138. White count 9.7, hemoglobin and hematocrit 13 and 38.5 with platelet count of 220,000. AST and ALT mildly elevated at 52 and 100. IMPRESSION: 1. Status post recent inferior myocardial fraction complicated by right ventricular involvement and persistent hypotension, responsive to IV fluids. 2. Status post emergent percutaneous coronary intervention of proximal right coronary artery with drug-eluting stent. 3. History of chronic obstructive pulmonary disease with longstanding tobacco abuse. 4. Elevated transaminases, possibly related to statin use. Lipitor currently on hold. RECOMMENDATIONS: Transfer to telemetry and increased ambulation is advised. A low dose beta-royal therapy with carvedilol 3.125 mg daily will be added as tolerated. Followup transaminase levels will be monitored. A consult will be placed to Dr. Galen Rivas to assume medical management. She has seen Dr. Stepan Rivas intermittently in the past, but has been noncompliant with a regular followup. Referral to cardiac rehabilitation will be made. She states that she still may seek a second opinion with respect to her cardiac issues at [facility] upon discharge and she was strongly encouraged to do so as well. We will continue to follow along as needed. Shantanu Trevino MD [facility] # [id number]
--- NOTE | 2018-03-15 21:31 | CON ---
HISTORY OF PRESENT ILLNESS: The patient is a 62 year old woman with a past medical history of hypertension, hyperlipidemia and COPD with active tobacco dependence who was brought to [facility] ED after being found on the floor at home by family members. The patient reported that she felt lethargic and lightheaded prior to her reported syncopal episode and also reported a sensation of substernal chest heaviness and palpitations. Family had called EMS and she was brought to the ED for evaluation. Upon arrival to the ED she was found to have an acute inferior wall STEMI and was taken emergently to the cardiac catheterization lab with Dr. Trevino where she underwent PCI with BEATRICE stent placement to the proximal RCA. She was subsequently transferred to the CCU for post cardiac catheterization care and management of bradycardia and hypotension secondary to an RV infarct. PAST MEDICAL HISTORY: As per HPI. PAST SURGICAL HISTORY: As per HPI, also cholecystectomy and surgical resection of the esophageal polyp. ALLERGIES: NKDA. MEDICATIONS: Norvasc 10 gm p.o. daily and Lipitor 20 mg p.o. daily. FAMILY HISTORY: Significant for hypertension, hyperlipidemia and CAD. SOCIAL HISTORY: The patient reports an active [id number] smoking history and social alcohol use. She denies illicit drug abuse. REVIEW OF SYSTEMS: A 14-point review of systems is negative except as per HPI. PHYSICAL EXAMINATION: VITAL SIGNS: Temperature 98.2, pulse 64, blood pressure 97/52, respiratory rate 18, and oxygen saturation 96% on 2 liters nasal cannula. GENERAL: No apparent distress. HEENT: PERRL. EOMI. No scleral icterus. No conjunctival pallor. NECK: Supple with full range of motion. No JVD. No bruits. LUNGS: Decreased breath sounds at the bases with few rhonchi. CARDIOVASCULAR: Regular rate and rhythm. Normal S1 and S2. Systolic ejection murmur to left lower sternal border. ABDOMEN: Normal active bowel sounds. Soft, nontender, and nondistended. EXTREMITIES: No edema. NEUROLOGIC: Awake, alert, and oriented x 3. No focal motor deficits. LABORATORY DATA: WBC 9.7 with 81% neutrophils, hemoglobin 13, hematocrit 38, platelets 220. Sodium 145, potassium 3.9, chloride 110, bicarb 27, BUN 23, creatinine 0.6, glucose 138. AST 52, ALT 100, alkaline phosphatase 85. ASSESSMENT: The patient is a 62 year old woman with a past medical history of hypertension, hyperlipidemia and COPD with active tobacco dependence who presented after a syncopal episode and was found to have an acute inferior wall STEMI who is now s /p PCI with BEATRICE stent placement to the proximal RCA. PLAN: 1. Acute inferior wall STEMI s/p PCI with BEATRICE stent placement to the RCA. Continue with post catheterization care as per Dr. Trevino and Dr. Kapoor. Continue with IV fluid hydration to maintain normotension. Continue with close monitoring of hemodynamics. Continue Aspirin 81 mg p.o. daily, Brilinta 90 mg p.o. b.i.d., Lipitor 20 mg p.o. daily and Carvedilol 3.125 mg p.o. b.i.d. 2. CAD s/p STEMI s/p PCI with BEATRICE stent placement. Continue with care as above. Titrate beta blockade as tolerable. 3. Hypertension. Blood pressure remains labile. Echocardiogram reviewed. Continue with current medications and titrate beta blockade as tolerable. 4. Symptomatic bradycardia. Etiology is likely secondary to acute infarct with involvement of sinoatrial node. Continue with telemetry monitoring. 5. COPD. Input from Dr. Coffey noted and greatly appreciated. Continue with supplement oxygen and bronchodilators as needed. Continue with steroids to taper. The patient presently declines a nicotine patch. 6. Anxiety disorder. Continue with Xanax 0.25 mg p.o. t.i.d. and titrate as needed. 7. Transaminitis, consider etiology secondary to statin use. LFT's trending favorably. Will continue to monitor. 8. Prophylaxis. Continue with Protonix 40 mg p.o. daily for GI prophylaxis and heparin for DVT prophylaxis. CODE STATUS: Full code. Galen Rivas MD [facility]
[2018-03-16] MEDS: Albuterol-Ipratrop 3 mg / 0.5 (3 ml) UD IH SCH ×4 (01:59→19:25)
[2018-03-16 06:34] LABS: BASO # 0.01 K/mm3 (0.0-2.0); BASO % 0.1 % (0.0-3.0); EOS % 0.3 % (1.5-5.0); GRAN # 6.11 (1.4-6.5); GRAN % 61.4 % (50.0-68.0); HEMOGLOBIN 13.4 g/dL (12.0-16.0); LYMPH # 3.1 (1.2-3.4); LYMPH % 31.3 % (22.0-35.0); MEAN CELL VOLUME 98.8 fl (80.0-105.0); MEAN CORPUSCULAR HGB CONC 33.4 g/dl (31.0-37.0); MEAN PLATELET VOLUME 10.8 fl (7.0-11.0); MONO # 0.7 (0.1-0.6); MONO % 6.9 % (1.0-6.0); RBC 4.06 10^6/uL (3.5-6.1)
[2018-03-16 06:55] LABS: ALB/GLOB RATIO 1.3 (1.1-1.8); ALBUMIN 3.3 g/dL (3.0-4.8); ALT/SGPT 98 U/L (7-56); AST/SGOT 48 U/L (14-36); BLOOD UREA NITROGEN 21 mg/dL (7-21); CALCIUM 9.6 mg/dL (8.4-10.5); GFR AFRICAN-AMERICAN > 60; GFR NON-AFRICAN AMERICAN > 60
[2018-03-16] MEDS: Budesonide 0.5 mg/2 ml Inhal Susp UD IH SCH ×2 (07:51→19:25)
--- NOTE | 2018-03-16 08:10 | PN ---
DATE: 03/16/2018 PULMONARY NOTE SUBJECTIVE: The patient appears very comfortable this morning. She is not short of breath at rest. PHYSICAL EXAMINATION: VITAL SIGNS: Temperature is 98.4, pulse on the monitor is 64, respiratory rate 18, blood pressure 104/74. Oxygen saturation on nasal cannula is 98%. HEENT: Normocephalic, atraumatic. No JVD. CARDIOVASCULAR: Positive S1, S2. No S3 gallop. LUNGS: Minimal loose rhonchi. No wheezing. EXTREMITIES: No clubbing, cyanosis or edema. Calves are nontender to palpation. GI: Abdomen is soft, nontender and nondistended. Bowel sounds are positive. SKIN: No acute rash. NEUROLOGIC: Limited at the present time. IMPRESSION: 1. Acute myocardial infarction, status post cardiac stent. 2. Multivessel coronary artery disease. 3. Chronic obstructive pulmonary disease - possibly advanced. 4. Mild bronchospasm - resolving. PLAN: The patient appears very comfortable this morning. She is not short of breath at rest. She does state to feeling much better overall. I did discuss the case with the night nurse at length. The night nurse stated that the patient had a very good night. On physical exam, her bronchospasm continues to resolve. In addition, the alveolar arterial gradient also continues to resolve. Oxygen saturation on nasal cannula is now 98%. I will continue with the current nebulizer treatments and oral steroids (changed yesterday) for now. I would continue with the treatment for acute myocardial infarction and multivessel coronary artery disease as per Cardiology. Input by Dr. Trevino is noted. The clinical status of this patient is significantly improved overall. I will discuss the above with the attending physician. Hai Coffey MD [facility]
--- NOTE | 2018-03-16 08:31 | CP.PCM.PN ---
Subjective - Date & Time of Evaluation Date of Evaluation: 03/16/18 Time of Evaluation: 07:00 - Subjective Subjective: Stable on 2R.. She feels better. No CP or SOB. Amb. in room yesterday. V/S noted. RSR/SB PE: Lungs: few rhonchi Cor.: S1S2 Abd.: soft Ext.: no edema Neuro.: alert I/O= N/A Labs noted: CBC and BMP normal. LFTs improving CXR 03/12 noted: NAD ECG 03/12 noted: RSR, Mobitz 1, Ev IMI, STTW changes Objective - Vital Signs/Intake and Output Vital Signs (last 24 hours): Temp Pulse Resp BP Pulse Ox 98.4 F 68 20 104/74 98 03/15/18 23:56 03/16/18 06:00 03/15/18 23:56 03/15/18 23:56 03/15/18 23:56 Intake and Output: 03/16/18 03/16/18 06:59 18:59 Intake Total 720 Balance 720 - Medications Medications: Current Medications Acetaminophen (Tylenol 325mg Tab) 650 mg PO Q4H PRN PRN Reason: Pain, Mild (1-3) Last Admin: 03/10/18 16:07 Dose: 650 mg Albuterol/Ipratropium (Duoneb 3 Mg/0.5 Mg (3 Ml) Ud) 3 ml IH Q2H PRN PRN Reason: Shortness of Breath Last Admin: 03/13/18 03:10 Dose: 3 ml Albuterol/Ipratropium (Duoneb 3 Mg/0.5 Mg (3 Ml) Ud) 3 ml IH [id number] [facility] Last Admin: 03/16/18 01:59 Dose: 3 ml Alprazolam (Xanax) 0.25 mg PO TID [facility] Stop: 03/19/18 10:01 Last Admin: 03/15/18 17:32 Dose: 0.25 mg Aspirin (Ecotrin) 81 mg PO DAILY [facility] Last Admin: 03/15/18 09:34 Dose: 81 mg Atorvastatin Calcium (Lipitor) 20 mg PO DIN [facility] Last Admin: 03/15/18 17:32 Dose: 20 mg Budesonide (Pulmicort Respules) 0.5 mg IH [id number] [facility] Last Admin: 03/15/18 21:19 Dose: 0.5 mg Carvedilol (Coreg) 3.125 mg PO BID [facility] Last Admin: 03/15/18 17:32 Dose: 3.125 mg Docusate Sodium (Colace) 100 mg PO BID [facility] Last Admin: 03/13/18 09:05 Dose: 100 mg Heparin Sodium (Porcine) (Heparin) 5,000 units SC Q8 [facility] PRN Reason: Protocol Last Admin: 03/16/18 06:52 Dose: 5,000 units Loperamide HCl (Imodium) 2 mg PO QID PRN PRN Reason: Diarrhea Last Admin: 03/13/18 17:29 Dose: 2 mg Ondansetron HCl (Zofran Inj) 4 mg IVP Q4H PRN PRN Reason: Nausea/Vomiting Last Admin: 03/10/18 21:22 Dose: 4 mg Pantoprazole Sodium (Protonix Ec Tab) 40 mg PO ACB [facility] Last Admin: 03/15/18 09:34 Dose: 40 mg Prednisone (Prednisone Tab) 30 mg PO DAILY [facility] Last Admin: 03/15/18 09:34 Dose: 30 mg Sodium Chloride ([place] Nasal [place]) 1 ml NS Q6H PRN PRN Reason: Nasal congestion Last Admin: 03/12/18 14:16 Dose: 2 sprays Ticagrelor (Brilinta) 90 mg PO BID [facility] Last Admin: 03/15/18 17:32 Dose: 90 mg Zolpidem Tartrate (Ambien) 5 mg PO HS PRN PRN Reason: Insomnia Last Admin: 03/14/18 22:09 Dose: 5 mg - Labs Labs: 03/16/18 05:30 03/16/18 05:30 PT 10.4 SECONDS (9.4-12.5) 03/10/18 11:49 INR 0.91 (0.93-1.08) L 03/10/18 11:49 Assessment and Plan - Assessment and Plan (Free Text) Assessment: Acute IMI with occluded, large RCA and PCI BEATRICE 03/10/18 RV infarction Severe COPD/H/O smoking PVD HBP H/O GB surgery Plan: Continue ASA, and Brilinta (min. 1 year). Coreg. Pulm.Tx. Hold statin until LFTs normalize OOB as car./PT No smoking d/w her again today. D/C planning for tomorrow Cardiac Rehab to be arranged.
[2018-03-16] MEDS: Pantoprazole 40 mg EC Tab PO SCH (09:45)
--- NOTE | 2018-03-16 11:02 | PN ---
SUBJECTIVE: The patient was seen and examined at bedside on telemetry damon. No acute events overnight. She remains afebrile, hemodynamically stable and chest pain free. This morning she feels great, offers no complaints and is anticipating discharge to home in the near future. OBJECTIVE: VITAL SIGNS: Temperature 98.2, pulse 68, blood pressure 106/76, respiratory rate 20, oxygen saturation 98% on 2 L nasal canula. GENERAL: No apparent distress. HEENT: PERRL. EOMI. No scleral icterus. No conjunctival pallor. NECK: No JVD. LUNGS: Decreased breath sounds at the bases with minimal rhonchi. CARDIOVASCULAR: Regular rate and rhythm. Normal S1 and S2. Systolic ejection murmur to left lower sternal border. ABDOMEN: Normoactive bowel sounds. Soft, nontender and nondistended. EXTREMITIES: No edema. NEUROLOGIC: Awake, alert, and oriented x 3. No focal motor deficits. LABORATORY DATA: CBC reviewed and unremarkable. Chemistry reviewed and unremarkable. AST 48, ALT 98. ASSESSMENT: The patient is a 62 year old woman with a past medical history of hypertension, hyperlipidemia and COPD with active tobacco dependence who presented with an acute inferior wall STEMI who is now s/p PCI with BEATRICE stent placement to the RCA and s/p transfer out of the CCU. PLAN: 1. Acute inferior wall STEMI s/p PCI with BEATRICE stent placement to the RCA. Continue with postcatheterization care as per Dr. Trevino and Dr. Kapoor. Continue Aspirin 81 mg p.o. daily, Brilinta 90 mg p.o. b.i.d. and Carvedilol 3.125 mg p.o. b.i.d. LFT's trending favorably thus it would be reasonable to resume statin therapy consisting of Lipitor 20 mg p.o. daily. She has been encourage to ambulate around the telemetry damon. 2. CAD s/p STEMI s/p PCI with BEATRICE stent placement. Continue with care as above and encourage ambulation. 3. Hypertension. Blood pressure remains stable. Continue with current medications. 4. COPD. Input from Dr. Coffey greatly appreciated. Continue with supplemental oxygen, bronchodilators and steroids to taper. 5. Anxiety disorder. Continue with Xanax 0.25 mg p.o. t.i.d. 6. Transaminitis, resolving. LFT's continue to trend favorably. We will continue to monitor and resume statin therapy tomorrow. 7. Prophylaxis. Continue with Protonix for GI prophylaxis and heparin for DVT prophylaxis. 8. Disposition. The patient will likely discharge to home tomorrow. CODE STATUS: Full code. Galen Rivas MD MTDD
[2018-03-17] MEDS: Albuterol-Ipratrop 3 mg / 0.5 (3 ml) UD IH SCH ×3 (01:25→13:53)
[2018-03-17] MEDS: Pantoprazole 40 mg EC Tab PO SCH (06:35)
[2018-03-17 06:41] VITALS: O2SAT 97
[2018-03-17 07:20] LABS: ALB/GLOB RATIO 1.3 (1.1-1.8); ALBUMIN 3.6 g/dL (3.0-4.8); ALT/SGPT 101 U/L (7-56); AST/SGOT 42 U/L (14-36); BLOOD UREA NITROGEN 20 mg/dL (7-21); CALCIUM 9.7 mg/dL (8.4-10.5); GFR AFRICAN-AMERICAN > 60; GFR NON-AFRICAN AMERICAN > 60
--- NOTE | 2018-03-17 07:33 | PN ---
DATE: 03/17/2018 PULMONARY NOTE SUBJECTIVE: The patient appears very comfortable this morning. She is not short of breath at rest. PHYSICAL EXAMINATION: VITAL SIGNS: Temperature is 97.9, pulse 67, respirations 19, blood pressure 108/80. Oxygen saturation on room air is 97%. HEENT: Normocephalic, atraumatic. No JVD. CARDIOVASCULAR: Positive S1, S2. No S3 gallop. LUNGS: Clear bilaterally this morning. EXTREMITIES: No clubbing, cyanosis or edema. Calves are nontender to palpation. GI: Abdomen is soft, nontender and nondistended. Bowel sounds are positive. SKIN: No acute rash. NEUROLOGIC: Limited at the present time. IMPRESSION: 1. Acute myocardial infarction, status post cardiac stent. 2. Multivessel coronary artery disease. 3. Chronic obstructive pulmonary disease - possibly advanced. 4. Mild bronchospasm - resolved. PLAN: The patient appears very comfortable this morning. She is not short of breath at rest. She does state to feeling much, much better overall. I did discuss the case with the night nurse at length. The night nurse stated that the patient had a very good night. On physical exam, her bronchospasm has primarily resolved. In addition, the alveolar-arterial gradient has also resolved. Oxygen saturation on room air is now 97%. I will continue with the current nebulizer treatments and low-dose oral steroids for now. I would continue with the treatment for acute myocardial infarction and multivessel coronary artery disease as per Cardiology. Inputs are noted. The clinical status of the patient is significantly improved overall. I will discuss the above with the attending physician. If/when discharged, the patient is well aware that she will need to follow up with me in the office. She does have my card/information for a followup appointment. Hai Coffey MD MTDD
[2018-03-17] MEDS: Budesonide 0.5 mg/2 ml Inhal Susp UD IH SCH (08:09)
--- NOTE | 2018-03-17 08:14 | CP.PCM.PN ---
Subjective - Date & Time of Evaluation Date of Evaluation: 03/17/18 Time of Evaluation: 07:00 - Subjective Subjective: Stable on 2R.. She feels much better. No CP or SOB. Amb. in hallways yesterday. V/S noted. RSR/SB PE: Lungs: few rhonchi Cor.: S1S2 Abd.: soft Ext.: no edema Neuro.: alert I/O= 360/500 recorded Labs noted: K+= 3.8, Cr.= 0.7, AST= 42, ALT= 101 BC X2 NG at 4 days CXR 03/12 noted: NAD ECG 03/12 noted: RSR, Mobitz 1, Ev IMI, STTW changes Objective - Vital Signs/Intake and Output Vital Signs (last 24 hours): Temp Pulse Resp BP Pulse Ox 97.9 F 67 19 108/80 97 03/17/18 06:00 03/17/18 06:00 03/17/18 06:00 03/17/18 06:00 03/17/18 06:00 Intake and Output: 03/17/18 03/17/18 06:59 18:59 Intake Total 360 Output Total 500 Balance -140 - Medications Medications: Current Medications Acetaminophen (Tylenol 325mg Tab) 650 mg PO Q4H PRN PRN Reason: Pain, Mild (1-3) Last Admin: 03/10/18 16:07 Dose: 650 mg Albuterol/Ipratropium (Duoneb 3 Mg/0.5 Mg (3 Ml) Ud) 3 ml IH Q2H PRN PRN Reason: Shortness of Breath Last Admin: 03/13/18 03:10 Dose: 3 ml Albuterol/Ipratropium (Duoneb 3 Mg/0.5 Mg (3 Ml) Ud) 3 ml IH [id number] SURJIT Last Admin: 03/17/18 01:25 Dose: 3 ml Alprazolam (Xanax) 0.25 mg PO TID [facility] Stop: 03/19/18 10:01 Last Admin: 03/16/18 17:48 Dose: 0.25 mg Aspirin (Ecotrin) 81 mg PO DAILY [facility] Last Admin: 03/16/18 09:45 Dose: 81 mg Atorvastatin Calcium (Lipitor) 20 mg PO DIN [facility] Last Admin: 03/15/18 17:32 Dose: 20 mg Budesonide (Pulmicort Respules) 0.5 mg IH [id number] [facility] Last Admin: 03/16/18 19:25 Dose: 0.5 mg Carvedilol (Coreg) 3.125 mg PO BID [facility] Last Admin: 03/16/18 17:49 Dose: 3.125 mg Docusate Sodium (Colace) 100 mg PO BID [facility] Last Admin: 03/13/18 09:05 Dose: 100 mg Heparin Sodium (Porcine) (Heparin) 5,000 units SC Q8 [facility] PRN Reason: Protocol Last Admin: 03/17/18 06:35 Dose: 5,000 units Loperamide HCl (Imodium) 2 mg PO QID PRN PRN Reason: Diarrhea Last Admin: 03/13/18 17:29 Dose: 2 mg Ondansetron HCl (Zofran Inj) 4 mg IVP Q4H PRN PRN Reason: Nausea/Vomiting Last Admin: 03/10/18 21:22 Dose: 4 mg Pantoprazole Sodium (Protonix Ec Tab) 40 mg PO ACB [facility] Last Admin: 03/17/18 06:35 Dose: 40 mg Prednisone (Prednisone Tab) 30 mg PO DAILY [facility] Last Admin: 03/16/18 09:45 Dose: 30 mg Sodium Chloride ([place] Nasal [place]) 1 ml NS Q6H PRN PRN Reason: Nasal congestion Last Admin: 03/12/18 14:16 Dose: 2 sprays Ticagrelor (Brilinta) 90 mg PO BID [facility] Last Admin: 03/16/18 17:49 Dose: 90 mg Zolpidem Tartrate (Ambien) 5 mg PO HS PRN PRN Reason: Insomnia Last Admin: 03/16/18 22:17 Dose: 5 mg - Labs Labs: 03/16/18 05:30 03/17/18 06:30 PT 10.4 SECONDS (9.4-12.5) 03/10/18 11:49 INR 0.91 (0.93-1.08) L 03/10/18 11:49 Assessment and Plan - Assessment and Plan (Free Text) Assessment: Acute IMI with occluded, large RCA and PCI BEATRICE 03/10/18 RV infarction Sinus Bradycardia Severe COPD/H/O smoking PVD HBP H/O GB surgery Plan: D/C cardiac meds: ASA 81 daily, Brilinta 90 BID (min. 1 year), Coreg 3.125 BID , atorvastatin 20 mg. daily. As per pulmonary. No smoking d/w her again today. Low sat. fat diet. D/C planning for today. Out-pt cardiac f/u next week. Cardiac Rehab to be arranged.
[2018-03-17 14:23] VITALS: BP 135/76; PULSE 59; RESP 16; TEMP 97.8
== END 2018-03-17 16:55 | disposition home or self-care (01) | DRG 247 ==
LOC: ED 11:34 → CATH 11:56 → ICU 13:22 → 2RNO 03-15 12:04
PROVIDERS: ADMIT Internal Medicine Cardiovascular Disease; ATTEND Internal Medicine Cardiovascular Disease
PROC: 027034Z Dilation of Coronary Artery, One Artery with Drug-eluting Intraluminal Device, Percutaneous Approach (ICD-10-PCS; principal; 2018-03-10)
PROC: 4A023N7 Measurement of Cardiac Sampling and Pressure, Left Heart, Percutaneous Approach (ICD-10-PCS; 2018-03-10)
PROC: B2151ZZ Fluoroscopy of Left Heart using Low Osmolar Contrast (ICD-10-PCS; 2018-03-10)
PROC: B2111ZZ Fluoroscopy of Multiple Coronary Arteries using Low Osmolar Contrast (ICD-10-PCS; 2018-03-10)
DX: I21.19 ST elevation (STEMI) myocardial infarction involving other coronary artery of inferior wall (principal); I25.10 Atherosclerotic heart disease of native coronary artery without angina pectoris; I73.9 Peripheral vascular disease, unspecified; R00.1 Bradycardia, unspecified; F17.210 Nicotine dependence, cigarettes, uncomplicated; J44.9 Chronic obstructive pulmonary disease, unspecified; I44.0 Atrioventricular block, first degree; I95.89 Other hypotension; J98.01 Acute bronchospasm; I10 Essential (primary) hypertension; F41.9 Anxiety disorder, unspecified; E78.5 Hyperlipidemia, unspecified; Z91.19 Patient's noncompliance with other medical treatment and regimen; Z82.49 Family history of ischemic heart disease and other diseases of the circulatory system